=== PATIENT | female | born 1975 | race Caucasian/White ===

== ENCOUNTER 2021-02-20 12:43 | Emergency (ER) | payer BC, SELFPAY ==
[2021-02-20 12:45] VITALS: BP 136/86; PULSE 86; RESP 16; TEMP 36.8; O2SAT 98; BMI 25.9
--- NOTE | 2021-02-20 13:24 | HMH.EDUTC ---
[facility] [place] Clinical Impression: Dental abscess Disposition: Home, Self-Care Condition on Discharge: Good Instructions: Tooth Abscess, Amoxicillin and Clavulanic Acid Additional Instructions: Take medication as prescribed Follow up with your Family Doctor if needed Make sure to follow up with Dentist for further evaluation and treatment of broken teeth Straight to ER if any life threatening symptoms Prescriptions: Amoxicillin/Potassium Clav [Augmentin 875-125 Tablet] 1 tab PO Q12H 10 Days #20 tab Transmission Status: Pending to [id number] Referrals: Carlos Laguna [Primary Care Provider] - As needed Nithin Brizuela [Referring] - Time of Disposition: 13:57 Medical Decision Making - Jayjay Inquiry Pt receiving controlled substance: No Jayjay was queried for this patient: No Vital Signs: 02/20/21 12:45 Temperature 98.3 F Temperature Source Oral Pulse Rate [Right Brachial] 86 Respiratory Rate 16 Blood Pressure [Right Arm] 136/86 Blood Pressure Mean [Right Arm] 102 Blood Pressure Source [Right Arm] Automatic Cuff Blood Pressure Position [Right Arm] Sitting 02 Sat by Pulse Oximetry 98 Oxygen Delivery Method Room Air [facility] [place] H[place] - General Stated complaint: tooth ache Lt upper Time Seen by Provider: 02/20/21 13:24 Mode of Arrival: Ambulatory Source of Information: Patient Limitations: No Limitations Description of Symptoms (Recalled from Triage Doc. by RN): PATIENT C/O TOOTH ACHE SINCE FRIDAY NIGHT HEENT Symptoms (Recalled from RN notes): Yes Resp Symptoms (Recalled from RN notes): No Skin Symptoms (Recalled from RN notes): No MS Symptoms (Recalled from RN notes): No Functional Status (Recalled from RN notes): WNL - History of Present Illness Provider Complaint: Patient states that she has several broken and decaying teeth in her upper teeth two being the the main front teeth States that she spoke with her dentist and they recommended that she come in and get on some antibiotics due to she started having dental pain on Friday and now having some swelling of her upper lip area and thinks she has an infection - Related Data Previous Rx's Medication Instructions Recorded Amoxicillin/Potassium Clav 1 tab PO Q12H 10 Days #20 tab 02/20/21 [Augmentin 875-125 Tablet] Allergies Allergy/AdvReac Type Severity Reaction Status Date / Time No Known Allergies Allergy Verified 02/20/21 13:18 - Worker's Comp Is this a Worker's Comp case?: No [facility] History - Hepatitis A Screen Drug use history?: No High risk sexual behaviors?: No History of sexually transmitted infection?: No Currently employed?: No Childcare worker?: No Do you have indoor plumbing?: Yes Do you have electricity?: Yes Attestation statement:: This patient has been screened for Hepatitis A risk factors. I have reviewed the patient's past medical history: Yes - Social History Alcohol Intake: never Occupational Status: other ROS Obtained: Yes All systems reviewed & no additional complaints, Yes Systems reviewed as appropriate & no additional complaints - Constitutional Constitutional: Reports system reviewed and no additional complaints, except as docu - ENT Ears, Nose, Mouth, and Throat: Reports system reviewed and no additional complaints, except as docu, Reports dental pain - Cardiovascular Cardiovascular: Reports system reviewed and no additional complaints, except as docu Physical Exam - General General appearance: alert, in no apparent distress - Expanded ENT Exam Teeth exam: Present: dental caries, other (multiple broken and decaying teeth noted with redness and swelling to upper gumline and lip like that seen with dental abscess) - Respiratory Respiratory exam: Present: normal lung sounds bilaterally. Absent: respiratory distress - Cardiovascular Cardiovascular exam: Present: regular rate, normal rhythm. Absent: JVD - Neurological Exam Neurological exam: Present: alert, oriented X3
[2021-02-20 13:59] VITALS: BP 136/86; PULSE 86; RESP 16; TEMP 36.8; O2SAT 98
== END 2021-02-20 14:01 | disposition home or self-care (01) ==
PROVIDERS: Emergency Provider Nurse Practitioner; PCP Family Medicine
DX: K04.7 Periapical abscess without sinus (principal)
CPT/HCPCS: 99202; G0463

== ENCOUNTER 2021-05-07 09:20 | Outpatient (CLI) | payer BC, SELFPAY ==
[2021-05-07] VITALS (7 sets, daily range): BP systolic 105–118; BP diastolic 76–88; PULSE 83–100; RESP 15–20; TEMP 37.2–37.3; O2SAT 91–100
== END 2021-05-07 11:28 | disposition home or self-care (01) ==
LOC: INF 09:23
PROVIDERS: PCP Family Medicine; Visit Provider Emergency Medicine
DX: U07.1 COVID-19 (principal)
CPT/HCPCS: 96365

== ENCOUNTER 2022-10-22 08:15 | Emergency (ER) | payer BC, SELFPAY ==
[2022-10-22 08:20] VITALS: BP 152/94; PULSE 93; RESP 20; TEMP 37.1; O2SAT 96; BMI 26.1
--- NOTE | 2022-10-22 08:31 | EXP.UTC ---
Discharge Plan Disposition Patient Disposition: Home, Self-Care Condition: Good Prescriptions Prescriptions: New azithromycin [Zithromax] 250 mg tablet 250 mg PO UD DOSE PK Qty: 6 0RF Rx Instructions: Take two (2) tablets today, then one (1) tablet days #2 thru #5 benzonatate [benzonatate] 100 mg capsule 100 mg PO TIDP PRN (Reason: Cough) Qty: 30 0RF methylprednisolone 4 mg Tablets,Dose Pack 4 mg PO DIRECTED Qty: 21 0RF Referrals Follow up/Referrals: Carlos Laguna [Primary Care Provider] - See instructions Activity Restrictions/Add. Instructions Additional Instructions/Restrictions: Drink plenty of fluids. Take tylenol or ibuprofen for pain or fever. Take the medications as directed. Follow up with your regular doctor. GO TO THE ER FOR ANY WORSENING SYMPTOMS Clinical Impressions Clinical Impression: Sinusitis Stand Alone Forms Stand Alone Forms: Work/School Release Instructions Patient Instructions: Sinusitis, DI for Sinusitis Discharge ED Provider: Osman Espino [facility] General Stated complaint: Chest congestion SOA Cough Time Seen by Provider: 10/22/22 08:30 History of Present Illness Provider Complaint: She states that for the past 3 days she has had worsening sinus congestion and sore throat. Related Data Previous Rx's Medication Instructions Recorded azithromycin 250 mg tablet 250 mg PO UD DOSE PK #6 tabs 10/22/22 (Zithromax) benzonatate 100 mg capsule 100 mg PO TIDP PRN Cough #30 caps 10/22/22 methylprednisolone 4 mg tablets in 4 mg PO DIRECTED #21 tabs 10/22/22 a dose pack Allergies Allergy/AdvReac Type Severity Reaction Status Date / Time No Known Allergies Allergy Verified 10/22/22 08:32 [facility] Disclaimer: The information contained in this section may have been updated after the patient was seen, as this information can be updated by other users. Social History Smoking Status: Current every day smoker alcohol intake: never current occupational status: other Travel in the last 8 weeks: None ROS Obtained: Yes All systems reviewed & no additional complaints except as documented Constitutional Constitutional: Reports poor appetite Eyes Eyes: Reports system reviewed and no additional complaints, except as documented ENT Ears, Nose, Mouth, and Throat: Reports as per HPI Cardiovascular Cardiovascular: Reports system reviewed and no additional complaints, except as documented and Denies chest pain Respiratory Respiratory: Denies shortness of breath, Denies chest congestion, Reports cough, Denies stridor and Denies wheezing Gastrointestinal Gastrointestingal: Reports system reviewed and no additional complaints, except as documented; Denies abdominal pain, diarrhea or vomiting Musculoskeletal Musculoskeletal: Reports system reviewed and no additional complaints, except as documented and Denies arthralgias Integumentary/Breasts Skin/Breast: Reports system reviewed and no additional complaints, except as documented and Denies rash Neurologic Neurologic: Denies paresthesias Allergic/Immunologic Allergic/Immunologic: Denies wheezing Physical Exam General General appearance: alert and in no apparent distress Eye Eye exam: Present normal appearance, PERRL and EOMI ENT ENT exam: Present mucous membranes moist and normal external ear exam Expanded ENT Exam External ear exam: Present normal external inspection TM/Canal exam: Bilateral TM: erythema and bulging Nose exam: Absent sinus tenderness Nasal speculum exam: Bilateral: normal Mouth exam: Present normal external inspection; Absent drooling Teeth exam: Present normal inspection Throat exam: Present tonsillar erythema and tonsillomegaly Neck Neck exam: Present normal inspection, full ROM and trachea midline; Absent tenderness, lymphadenopathy or thyromegaly Chest Chest inspection: Present normal inspection and symmetric chest w
[2022-10-22 09:15] VITALS: BP 152/94; PULSE 93; RESP 20; TEMP 37.1; O2SAT 96
== END 2022-10-22 09:15 | disposition home or self-care (01) ==
PROVIDERS: Emergency Provider Nurse Practitioner Family; PCP Family Medicine
DX: J32.9 Chronic sinusitis, unspecified (principal)
CPT/HCPCS: 99212; 99213; G0463

== ENCOUNTER 2025-03-22 20:44 | Emergency (ER) | payer SELFPAY ==
--- NOTE | 2025-03-22 20:39 | ECG_ITS ---
APPROVED REPORT Exam: Resting ECG HR:81 bpm ECG Measurements Heart Rate 81 AXES MD 177 P 55 QRSd 83 QRS 83 QT 379 T 75 QTc 417 Conclusion Normal sinus rhythm without acute ST or T wave changes concerning for ischemia, T wave inversions in V1 V2 V3 V4, no comparison Electronically signed by : Adriane Dorman, 03/23/2025 00:34:08
[2025-03-22 20:41] VITALS: BP 157/106; PULSE 78; RESP 18; TEMP 36.9; O2SAT 98; BMI 24.7
--- NOTE | 2025-03-22 20:45 | HMH.EDGENADL ---
Discharge Plan Disposition Patient Disposition: Home, Self-Care Condition: Good Prescriptions Prescriptions: No Action azithromycin [Zithromax] 250 mg tablet 250 mg PO UD DOSE PK Qty: 6 0RF Rx Instructions: Take two (2) tablets today, then one (1) tablet days #2 thru #5 benzonatate [benzonatate] 100 mg capsule 100 mg PO TIDP PRN (Reason: Cough) Qty: 30 0RF methylprednisolone 4 mg Tablets,Dose Pack 4 mg PO DIRECTED Qty: 21 0RF Referrals Follow up/Referrals: Carlos Laguna [Primary Care Provider, Medical] - See instructions Danyel Potter MD [Staff Physician, Cardiology] - See instructions Activity Restrictions/Add. Instructions Additional Instructions/Restrictions: I have referred you to cardiology. Please call to make your appointment in the morning. If you have any persistent new or worsening signs or symptoms follow-up with your PCP return to the ER as needed. Clinical Impressions Clinical Impression: Chest pain Qualifiers: Chest pain type: unspecified Qualified Code(s): R07.9 - Chest pain, unspecified Print Language Print Language: Pashto Discharge ED Provider: Jamison Desai General Adult HPI <MILAD Oakley - Last Filed: 03/22/25 21:31> General Chief complaint: Chest Pain Stated complaint: chest pain Time Seen by Provider: 03/22/25 20:45 History of Present Illness HPI narrative: Patient presents for evaluation of chest pain. Patient states that she has had intermittent chest pain today that began around 8:39 this morning. She did not have any provoking factors that happen at rest. It is lasted approximately 30 minutes at a time. She denies any shortness of breath fever chills hemoptysis hematochezia melena nausea vomiting diarrhea or muscle strain or trauma. She does not have a known cardiac history is on no home medications. Related Data Previous Rx's ?Medication ?Instructions ?Recorded azithromycin 250 mg tablet 250 mg PO UD DOSE PK #6 tabs 10/22/22 (Zithromax) benzonatate 100 mg capsule 100 mg PO TIDP PRN Cough #30 caps 10/22/22 methylprednisolone 4 mg tablets in 4 mg PO DIRECTED #21 tabs 10/22/22 a dose pack Allergies Allergy/AdvReac Type Severity Reaction Status Date / Time No Known Allergies Allergy Verified 10/22/22 08:32 [facility] <MILAD Oakley - Last Filed: 03/22/25 21:31> [facility] Disclaimer: The information contained in this section may have been updated after the patient was seen, as this information can be updated by other users. Social History (Updated 10/22/22 @ 09:11 by Osman Espino APRN) Smoking Status: Never smoker alcohol intake: never current occupational status: other Travel in the last 8 weeks?: None Have you lived/traveled outside [place] in past 30 days?: No Contact w/someone who lives/traveled outside US past 30 days?: No Exposure to someone with infectious disease in past 14 days?: No Do you have a fever (greater than 100.4 F or 38 C)?: No Have you tested positive for COVID-19?: No Exposed to someone with COVID-19 in past 14 days?: No Do you have a sore throat?: No Do you have a cough?: No Do you have any weakness?: No Do you have any diarrhea?: No Are you experiencing any unusual bleeding?: No Do you have any muscle aches/pain?: No Do you have any abdominal pain?: No Are you experiencing loss of taste or smell?: No <MILAD Oakley - Last Filed: 03/22/25 21:31> ROS Obtained: Yes Systems reviewed as appropriate & no additional complaints except as documented Physical Exam <MILAD Oakley - Last Filed: 03/22/25 21:31> General General appearance: alert and in no apparent distress Respiratory Respiratory exam: Present normal lung sounds bilaterally Cardiovascular Cardiovascular exam: Present regular rate Neurological Exam Neurological exam: Present alert and oriented X3 Medical Decision Making <MILAD Oakley - Last Filed: 03/22/25 21:31> Medical Records Medical records reviewed: Yes I reviewed the patient's medical records. Screening: Per USPSTF and CDC recommendations, given the prevalence of disease in our region, it is our hospital?s policy to screen for HIV and viral Hepatitis for all patients aged 18 and over and those with ongoing risk factors. Jayjay Inquiry Pt receiving controlled substance: No Vital Signs: 03/22/25 20:41 03/22/25 22:00 03/22/25 22:30 Temperature 98.4 F Temperature Source Oral Pulse Rate 66 62 Pulse Rate [Right] 78 Respiratory Rate 18 Blood Pressure 133/83 153/83 H Blood Pressure [Right Arm] 157/106 H Blood Pressure Mean [Right Arm] 123 Blood Pressure Source [Right Arm] Automatic Cuff Blood Pressure Position [Right Arm] Sitting 02 Sat by Pulse Oximetry 98 97 98 Oxygen Delivery Method Room Air 03/22/25 23:01 Temperature Temperature Source Pulse Rate 74 Pulse Rate [Right] Respiratory Rate Blood Pressure 124/83 Blood Pressure [Right Arm] Blood Pressure Mean [Right Arm] Blood Pressure Source [Right Arm] Blood Pressure Position [Right Arm] 02 Sat by Pulse Oximetry 97 Oxygen Delivery Method Lab Data Lab results reviewed: Yes I reviewed the patient's lab results. Lab Results 03/22/25 20:47: WBC 6.8, RBC 4.60, Hgb 13.4, Hct 40.9, MCV 88.9, MCH 29.1, MCHC 32.8, RDW 12.3, Plt Count 273, MPV 10.2, Neut % (Auto) 51.1, Lymph % (Auto) 28.3, Norton % (Auto) 7.9, Eos % (Auto) 11.3, Baso % (Auto) 1.3, Neut # (Auto) 3.5, Lymph # (Auto) 1.9, Norton # (Auto) 0.5, Eos # (Auto) 0.8 H, Baso # (Auto) 0.1, D-Dimer 0.58 H, Sodium 143, Potassium 3.4 L, Chloride 111 H, Carbon Dioxide 25, Anion Gap 10.4, BUN 17, Creatinine 0.90, Estimated Creat Clear 77, Estimated GFR 67, Est GFR ( Amer) 81, Glucose 112 H, Calcium 9.7, Total Bilirubin 0.6, AST 23, ALT 14, Alkaline Phosphatase 118, Troponin I < 0.01, NT-Pro-B Natriuret Pep 45.4, Total Protein 7.2, Albumin 4.4, Globulin 2.8, Albumin/Globulin Ratio 1.6, Serum HCG, Qual Negative 03/22/25 23:27: Troponin I < 0.01 03/22/25 20:47 03/22/25 20:47 Orders (Tests/Meds): ED MEDICATIONS Discontinued Medications Generic Name Dose Route Start Last Admin Trade Name Freq PRN Reason Stop Dose Admin Acetaminophen 1,000 mg 03/22/25 20:50 03/22/25 21:10 Acetaminophen 500mg Tab PO 03/22/25 20:51 1,000 mg ONCE ONE Administration Sodium Chloride 1,000 mls @ 999 mls/hr 03/22/25 20:50 03/22/25 21:10 Sod Chlor 0.9% 1000ml Bag IV 03/22/25 21:50 999 mls/hr .Q1H1M ONE Administration Ketorolac Tromethamine 15 mg 03/22/25 20:50 03/22/25 21:10 Ketorolac 30mg/Ml Vial IV 03/22/25 20:51 15 mg ONCE ONE Administration Ondansetron HCl 4 mg 03/22/25 20:50 03/22/25 21:09 Ondansetron 4mg/2ml Vial IV 03/22/25 20:51 4 mg ONCE ONE Administration Potassium Chloride 60 meq 03/22/25 21:14 03/22/25 21:21 Potassium Chloride 20meq Tab PO 03/22/25 21:15 60 meq ONCE ONE Administration ORDERS Category Date Time Status Chest XR 2 view (NOT portable) [XR chest 2V] Stat Exams 03/22/25 20:50 Completed BNP [NT Pro Brain Natriuretic Pep.] Stat Lab 03/22/25 20:47 Completed CBC w/Auto Diff [Complete Blood Count Auto Diff] Stat Lab 03/22/25 20:47 Completed CMP [Comprehensive Metabolic Panel] Stat Lab 03/22/25 20:47 Completed D-Dimer Stat Lab 03/22/25 20:47 Completed HCG Qualitative, Serum Stat Lab 03/22/25 20:47 Completed Trop I [Troponin I] Stat Lab 03/22/25 20:47 Completed Troponin I Q3H Lab 03/22/25 23:27 Completed Troponin I Q3H Lab 03/23/25 02:51 Ordered Medical Decision Narrative: In summary patient is a 49-year-old female who presents to the emergency department for evaluation of intermittent chest pain. Patient is initially hypertensive with a blood pressure 157/106 heart rate 78 with sinus rhythm on the bedside monitor breathing 18 times a minute satting at 98% on room air upon arrival, afebrile at 98.4. Physical exam is remarkable for clear breath sounds with no increased work of breathing adventitious sounds, there is no reproducible chest pain on palpation, abdomen soft nontender no rebound or guarding no rigidity. Bowel sounds normal active.. Differential diagnosis includes ACS versus PE versus pneumonia versus musculoskeletal strain etc. Initial workup will be conducted with hematologic labs twelve-lead EKG plain film chest x-ray. Initial interventions include Tylenol Toradol Zofran. Initial workup interpreted by me and her hematologic labs are nonactionable including an undetectable troponin. Patient had a D-dimer of 0.58 but thrombus is excluded by years criteria. Given this the patient was placed in observation status at 2130. Medical necessity for observational status is serial troponins. The patient was provided serial reevaluations continuous cardiac monitoring pulse oximetry while awaiting results. Care transitioned to Dr. Dorman at 2200 hrs. during observation. Total time in observation was [total time]. <Adriane Dorman, DO - Last Filed: 03/23/25 00:29> Vital Signs: 03/22/25 20:41 03/22/25 22:00 03/22/25 22:30 Temperature 98.4 F Temperature Source Oral Pulse Rate 66 62 Pulse Rate [Right] 78 Respiratory Rate 18 Blood Pressure 133/83 153/83 H Blood Pressure [Right Arm] 157/106 H Blood Pressure Mean [Right Arm] 123 Blood Pressure Source [Right Arm] Automatic Cuff Blood Pressure Position [Right Arm] Sitting 02 Sat by Pulse Oximetry 98 97 98 Oxygen Delivery Method Room Air 03/22/25 23:01 Temperature Temperature Source Pulse Rate 74 Pulse Rate [Right] Respiratory Rate Blood Pressure 124/83 Blood Pressure [Right Arm] Blood Pressure Mean [Right Arm] Blood Pressure Source [Right Arm] Blood Pressure Position [Right Arm] 02 Sat by Pulse Oximetry 97 Oxygen Delivery Method Lab Data Lab Results 03/22/25 20:47: WBC 6.8, RBC 4.60, Hgb 13.4, Hct 40.9, MCV 88.9, MCH 29.1, MCHC 32.8, RDW 12.3, Plt Count 273, MPV 10.2, Neut % (Auto) 51.1, Lymph % (Auto) 28.3, Norton % (Auto) 7.9, Eos % (Auto) 11.3, Baso % (Auto) 1.3, Neut # (Auto) 3.5, Lymph # (Auto) 1.9, Norton # (Auto) 0.5, Eos # (Auto) 0.8 H, Baso # (Auto) 0.1, D-Dimer 0.58 H, Sodium 143, Potassium 3.4 L, Chloride 111 H, Carbon Dioxide 25, Anion Gap 10.4, BUN 17, Creatinine 0.90, Estimated Creat Clear 77, Estimated GFR 67, Est GFR ( Amer) 81, Glucose 112 H, Calcium 9.7, Total Bilirubin 0.6, AST 23, ALT 14, Alkaline Phosphatase 118, Troponin I < 0.01, NT-Pro-B Natriuret Pep 45.4, Total Protein 7.2, Albumin 4.4, Globulin 2.8, Albumin/Globulin Ratio 1.6, Serum HCG, Qual Negative 03/22/25 23:27: Troponin I < 0.01 Orders (Tests/Meds): ED MEDICATIONS Discontinued Medications Generic Name Dose Route Start Last Admin Trade Name Freq PRN Reason Stop Dose Admin Acetaminophen 1,000 mg 03/22/25 20:50 03/22/25 21:10 Acetaminophen 500mg Tab PO 03/22/25 20:51 1,000 mg ONCE ONE Administration Sodium Chloride 1,000 mls @ 999 mls/hr 03/22/25 20:50 03/22/25 21:10 Sod Chlor 0.9% 1000ml Bag IV 03/22/25 21:50 999 mls/hr .Q1H1M ONE Administration Ketorolac Tromethamine 15 mg 03/22/25 20:50 03/22/25 21:10 Ketorolac 30mg/Ml Vial IV 03/22/25 20:51 15 mg ONCE ONE Administration Ondansetron HCl 4 mg 03/22/25 20:50 03/22/25 21:09 Ondansetron 4mg/2ml Vial IV 03/22/25 20:51 4 mg ONCE ONE Administration Potassium Chloride 60 meq 03/22/25 21:14 03/22/25 21:21 Potassium Chloride 20meq Tab PO 03/22/25 21:15 60 meq ONCE ONE Administration ORDERS Category Date Time Status Chest XR 2 view (NOT portable) [XR chest 2V] Stat Exams 03/22/25 20:50 Completed BNP [NT Pro Brain Natriuretic Pep.] Stat Lab 03/22/25 20:47 Completed CBC w/Auto Diff [Complete Blood Count Auto Diff] Stat Lab 03/22/25 20:47 Completed CMP [Comprehensive Metabolic Panel] Stat Lab 03/22/25 20:47 Completed D-Dimer Stat Lab 03/22/25 20:47 Completed HCG Qualitative, Serum Stat Lab 03/22/25 20:47 Completed Trop I [Troponin I] Stat Lab 03/22/25 20:47 Completed Troponin I Q3H Lab 03/22/25 23:27 Completed Troponin I Q3H Lab 03/23/25 02:51 Ordered Medical Decision Narrative: In summary patient is a 49-year-old female who presents to the emergency department for evaluation of intermittent chest pain. Patient is initially hypertensive with a blood pressure 157/106 heart rate 78 with sinus rhythm on the bedside monitor breathing 18 times a minute satting at 98% on room air upon arrival, afebrile at 98.4. Physical exam is remarkable for clear breath sounds with no increased work of breathing adventitious sounds, there is no reproducible chest pain on palpation, abdomen soft nontender no rebound or guarding no rigidity. Bowel sounds normal active.. Differential diagnosis includes ACS versus PE versus pneumonia versus musculoskeletal strain etc. Initial workup will be conducted with hematologic labs twelve-lead EKG plain film chest x-ray. Initial interventions include Tylenol Toradol Zofran. Initial workup interpreted by me and her hematologic labs are nonactionable including an undetectable troponin. Patient had a D-dimer of 0.58 but thrombus is excluded by years criteria. Given this the patient was placed in observation status at 2130. Medical necessity for observational status is serial troponins. The patient was provided serial reevaluations continuous cardiac monitoring pulse oximetry while awaiting results. Care transitioned to Dr. Dorman at 2200 hrs. during observation. Adriane Dorman, DO I took over the care of this patient at 2200, patient was in observation for 2.5 hours. While in observation status, patient's pain was resolved, patient's pain did not return. Patient's repeat troponin was less than 0.01. Patient's heart score was 3. Patient's EKG did have some nonspecific T wave inversions in the anterior leads, patient reports previous cardiac workup 5 years ago with cath was negative for any acute coronary artery disease. At this time given that patient's troponin's x2 were less than 0.01 and that patient's pain was resolved I felt the patient was appropriate for outpatient management with cardiology follow-up. This time, patient was discharged home in stable condition. Cardiology follow-up was given at discharge. Critical Care <MILAD Oakley - Last Filed: 03/22/25 21:31> Critical Care Time Critical Care Time: No
--- OUTSIDE RECORDS SUMMARY | 2025-03-22 20:47 | XMS_ITS | Data Portability ---
Author Organization [facility] MOI Aragon AMES CLOSED Address [address] [place] [address] Care Team Providers Care Art Coordinator Name Role Phone MENDEZ MOODY Primary Care Provider Assessment Encounter Date Assessment Date Assessment LastModified by Organization Details LastModified Time 05/08/2017 05/08/2017 No evidence of ongoing UTI. Stones still present. We will proceed with cystoscopy, left ureteroscopy, laser lithotripsy, stent placement. The risks and benefits of the procedure were discussed patient. [email or web address] Not available 05/08/2017 16:05:10 04/15/2023 04/15/2023 We discussed the diagnosis of urolithiasis. We discussed tensional prevention with raising of urinary pH. She is initiated on potassium citrate. She understands that uric acid stones may not show on KUB unless there is some calcium component. Recheck X-ray and urine in 2 months [email or web address] Not available 04/20/2023 16:15:57 Plan of Treatment Reminders Order Date Submit Date Provider Last Modified By Organization Details Last Modified Time Details Appointments None recorded. Lab urinalysis panel, auto 2022 023 [email or web address] [facility], [address], [place], [address], 16:16:07 urinalysis , dipstick, auto 2016 017 [email or web address] [facility] [address], [place], [address], 7 16:03:49 Referral None recorded. Procedures None recorded. Surgeries cystoscopy , with ureterosco py, with lithotrips y, with insertion of ureteral stent (SURG) 2016 017 [email or web address] [facility], [address], [place], [address], 7 08:05:54 Imaging None recorded. Medication Orders potassium citrate ER 15 mEq (1,620 mg) tablet,ext ended release 2022 023 [facility], [address] [facility], [place], [address], 3 16:16:53 Patient TargetsNo targets recorded. Patient Instructions Encounter Date Encounter Id Patient Instructions Last Modified By Organization Details Last Modified Time 05/08/2017 [id number] healthy together ASIF Not availabl e 05/10/2017 21:46:16 kidney stone: care instructions ASIF Not available 05/10/2017 21:46:54 Reason for Referral None Reported. Results Created Date Observation Date Name Description Value Unit Range Abnormal Flag Note LastModifiedBy Organization Detail LastModifiedTime 05/08/20 17 05/08/2017 urina lysis , dipst ick, auto Unknown Analyte Yellow Not Available [facility] Extended Services With [address], [place], [address], 05/08/2017 15:34:00 05/08/20 17 05/08/2017 urina lysis , dipst ick, auto Unknown Analyte Clear Not Available [facility] With [address], [place], [address], 05/08/2017 15:34:00 05/08/20 17 05/08/2017 urina lysis , dipst ick, auto Unknown Analyte 1.020 Not Available [facility] With [address], [place], [address], 05/08/2017 15:34:00 05/08/20 17 05/08/2017 urina lysis , dipst ick, auto Unknown Analyte 5.0 Not Available [facility] With [address] [place], [place], [address], 05/08/2017 15:34:00 05/08/20 17 05/08/2017 urina lysis , dipst ick, auto Unknown Analyte Negati ve Not Available [facility] Extended Services With [address] [place], [place], [address], 05/08/2017 15:34:00 05/08/20 17 05/08/2017 urina lysis , dipst ick, auto Unknown Analyte Negati ve Not Available [facility] With [address], [place], [address], 05/08/2017 15:34:00 05/08/20 17 05/08/2017 urina lysis , dipst ick, auto Unknown Analyte Negtiv e Not Available [facility] With [address], [place], [address], 05/08/2017 15:34:00 05/08/20 17 05/08/2017 urina lysis , dipst ick, auto Unknown Analyte Normal Not Available [facility] With [address] [place], [address], 05/08/2017 15:34:00 05/08/20 17 05/08/2017 urina lysis , dipst ick, auto Unknown Analyte Negati ve Not Available [facility] With [address] [place], [address], 05/08/2017 15:34:00 05/08/20 17 05/08/2017 urina lysis , dipst ick, auto Unknown Analyte Normal Not Available [facility] With [address], [place], [address], 05/08/2017 15:34:00 05/08/20 17 05/08/2017 urina lysis , dipst ick, auto Unknown Analyte Negati ve Not Available [facility] With [address], [place], [address], 05/08/2017 15:34:00 05/08/20 17 05/08/2017 urina lysis , dipst ick, auto Unknown Analyte Negati ve Not Available [facility] With [address] [place] [place], [address], 05/08/2017 15:34:00 05/08/20 17 05/08/2017 urina lysis , dipst ick, auto Unknown Analyte Clean Catch Not Available [facility] With [address], [place], [address], 05/08/2017 15:34:00 05/08/20 17 05/08/2017 urina lysis , dipst ick, auto Unknown Analyte Automa ziyad Not Available [facility] With [address] [place] [place], [address], 05/08/2017 15:34:00 04/15/20 23 04/15/2023 urina lysis panel , auto Unknown Analyte Clean Catch Not Available [facility] [address], [place], [address], 04/15/2023 09:44:06 04/15/2004/15/2023 urina lysis panel , auto Unknown Analyte Yellow Not Available [facility] [place] [address], [place], [address], 04/15/2023 09:44:06 04/15/20 23 04/15/2023 urina lysis panel , auto Unknown Analyte Clear Not Available [facility] [address], [place], [address], 04/15/2023 09:44:06 04/15/20 23 04/15/2023 urina lysis panel , auto Unknown Analyte 1.015 Not Available [facility] [address], [place], [address], 04/15/2023 09:44:06 04/15/20 23 04/15/2023 urina lysis panel , auto Unknown Analyte 1.003- 1.035 Not Available [facility] [address], [place], [address], 04/15/2023 09:44:06 04/15/20 23 04/15/2023 urina lysis panel , auto Unknown Analyte 5.0 Not Available [facility] [address], [place], [address], 04/15/2023 09:44:06 04/15/20 23 04/15/2023 urina lysis panel , auto Unknown Analyte 5.0-8. 0 Not Available [facility] [address], [place], [address], 04/15/2023 09:44:06 04/15/20 23 04/15/2023 urina lysis panel , auto Unknown Analyte [address] [place] (++) Not Available [facility] [place] [address], [place], [address], 04/15/2023 09:44:06 04/15/20 23 04/15/2023 urina lysis panel , auto Unknown Analyte Negati ve Not Available [facility] [address], [place], [address], 04/15/2023 09:44:06 04/15/20 23 04/15/2023 urina lysis panel , auto Unknown Analyte Negati ve Not Available [facility] [address], [place], [address], 04/15/2023 09:44:06 04/15/20 23 04/15/2023 urina lysis panel , auto Unknown Analyte Negati ve Not Available [facility] [address], [place], [address], 04/15/2023 09:44:06 04/15/20 23 04/15/2023 urina lysis panel , auto Unknown Analyte Trace Not Available [facility] [address], [place], [address], 04/15/2023 09:44:06 04/15/20 23 04/15/2023 urina lysis panel , auto Unknown Analyte Negati ve Not Available [facility] [address], [place], [address], 04/15/2023 09:44:06 04/15/20 23 04/15/2023 urina lysis panel , auto Unknown Analyte Normal Not Available [facility] [address], [place], [address], 04/15/2023 09:44:06 04/15/20 23 04/15/2023 urina lysis panel , auto Unknown Analyte Normal Not Available [facility] [address], [place], [address], 04/15/2023 09:44:06 04/15/2004/15/2023 urina lysis panel , auto Unknown Analyte Negati ve Not Available [facility] [address], [place], [address], 04/15/2023 09:44:06 04/15/2004/15/2023 urina lysis panel , auto Unknown Analyte Negati ve Not Available [facility] [address], [place], [address], 04/15/2023 09:44:06 04/15/20 23 04/15/2023 urina lysis panel , auto Unknown Analyte Normal Not Available [facility] [address], [place], [address], 04/15/2023 09:44:06 04/15/2004/15/2023 urina lysis panel , auto Unknown Analyte Normal 1 mg/dl Not Available [facility] [address], [place], [address], 04/15/2023 09:44:06 04/15/2004/15/2023 urina lysis panel , auto Unknown Analyte Negati ve Not Available [facility] [address], [place], [address], 04/15/2023 09:44:06 04/15/20 23 04/15/2023 urina lysis panel , auto Unknown Analyte Negati ve Not Available [facility] [address], [place], [address], 04/15/2023 09:44:06 04/15/20 23 04/15/2023 urina lysis panel , auto Unknown Analyte Trace Not Available [facility] [address], [place], [address], 04/15/2023 09:44:06 04/15/20 23 04/15/2023 urina lysis panel , auto Unknown Analyte Negati ve Not Available [facility] [address], [place], [address], 04/15/2023 09:44:06 05/14/20 17 05/14/2017 fluor oscop y (PROC ) No observ ation record ed. [email or web address] [facility] [address], [place], [address], 05/15/2017 09:34:04 05/20/20 17 05/01/2017 CT, abdom en + pelvi s, w/o contr ast No observ ation record ed. [facility] [address], [place], [address], 05/20/2017 16:36:02 05/20/20 17 05/03/2017 XR, kidne y + urete r + bladd er No observ ation record ed. [facility] [address], [place], [address], 05/20/2017 16:36:02 Result Notes None recorded. Procedures Surgical History Date Name Laterality Status Provider Name and Address Organization Details Recorded Time Hysterectomy completed [facility] 05/08/2017 15:31:09 Imaging Results None recorded. Procedure Notes None recorded. Medical Equipment None Reported. Allergies No known drug allergies Medications Name Sig Start Date Stop Date Status Note LastModified by Organization Details LastModified Time potassium citrate ER 15 mEq (1,620 mg) tablet,exte nded release Take 1 tablet twice a day by oral route for 90 days. 023 active Not Available Not Available Not Avai lable Vitals Date Recorded Body height Body mass index (BMI) Body weight Systolic And Diastolic Provider Name and Address Organization Details Last Updated DateTime 05/08/2017 162.56 cm 23.2 kg/m2 58836.97 g 130/81 mm[Hg] [facility] 05/08/2017 15:28:14 Social History Question Answer Notes LastModified by Organizat ion Details LastModified Time Tobacco Smoking Status Never Smoker [facility] 05/08/2017 15:30:53 Marital Status Informatio n not available 05/08/2017 What Was The Date Of Your Most Recent Tobacco Screening? 05/08/2017 Information n ot available 10/19/2019 Sex: Unknown Functional Status Question Answer Note LastModified by Organization D etails LastModified Time What is your level of alcohol consumption? None Information not available 05/08/2017 Mental Status None recorded. Family History Relationship Description Onset Age of this Age Resolved Age Notes LastModified by Organization Details LastModified Time Unspecified Relation Family history of malignant neoplasm merary Not available 2016 15:30:46 Medical History Condition Response Kidney Stones Y Anemia Y Gynecological HistoryNo gynecological history recorded. Obstetrics History GPAL:G 0 P 0 0 0 0 Past Encounters Encounter ID Performer Location Encounter Start Date Encounter Closed Date Diagnosis/Indication Diagnosis SNOMED-CT Code Diagnosis ICD10 Code Diagnosis Note [id number] REINIER CHIN MD [facility] [address] [place] [address] ,[address] [place] [address] 05/08/2017 15:26:30 05/09/2017 15:54:31 Ureteric stone 86880688 N20.1 [id number] REINIER CHIN MD [facility] [address] [place] [address] 04/15/2023 09:08:20 04/15/2023 10:08:04 Ureteric stone 92229539 N20.1 Uric acid urolithiasis 760573188 N20.9 Health Concerns Section Related Observation LastModified by Organization Detai ls LastModified Time None Recorded Concern Status LastModified by Organization Details LastModified Time None Recorded Advance Directives Directive None Recorded Payers Insurance Date Sequence Insurance Name Policy Number Policy Fraire Covered Member ID Fraire Member ID Guarantor Name 04/21/2023 1 [place] [id number] Simin A Jensen [id number] Simin Frandy Jensen 02/10/2023 1 [place] [id number] Vega Styles [id number] Simin Styles 05/09/2017 1 *SELF PAY* Griselda Styles Notes Date Note Type Note Provider Name and Address Organization Details Recorded Time 05/08/2017 text/html 42-year-old johnathan malin in the office for my initial evaluation and for discussion of left ureteral stones with recent sepsis of urinary origin. She began having pain on May 01, 2017. Pain persisted and she was evaluated and [facility] emergency department. CT scan was performed at that time that showed bilateral nephrolithiasis with 3 mm lower pole stone on the right, 2 mm lower pole stone on the left, 5 mm stone in distal left ureter with 2 smaller stones proximally measuring 4 mm and 3 mm. Pain has improved but she has not passed the stones. She was treated for Escherichia coli urinary tract infection And bacteremia with admission from May 01, 2017 2 May 03, 2017. Pain was left flank, nonradiating, 8 out of 10, no aggravating or alleviating factors. She was given Rocephin. KUB prior to discharge shows persistent stone. REINIER CHIN MD [address] [place], [address], [place] [facility] 05/08/2017 16:05:45 04/15/2023 text/html 48-year-old johnathan malin in the office for my initial evaluation and for discussion of urolithiasis. In January 2023 she was diagnosed with 2 mm right proximal renal stone and small non-obstructing renal stones. The ureteral stone was removed by Dr. Cast and she was diagnosed with uric acid urolithiasis. PCP has referred for evaluation and treatment of uric acid urolithiasis. Her urine pH today is 5. Daytime frequency 1-2 times per day. Nocturia 1x. No hesitancy or urgency. No gross hematuria or dysuria. REINIER CHIN MD [facility] [place], [address], [facility] 04/20/2023 16:16:48 OBGyn Episode No OBEpisode recorded.
--- OUTSIDE RECORDS SUMMARY | 2025-03-22 20:47 | XMS_ITS | Referral Summary ---
Author Organization [facility] ([place], [place], [place], [place]) Address [address] [place] [address] Care Team Providers Care Director Of [facility] Name Role Phone Carlos Laguna MD Primary Care Provider [phone] Allergies No known active allergies Medications HYDROcodone-marcel taminophen 7.5-300 mg Tab Take 1 tablet by mouth every 6 (six) hours as needed (pain). Max Daily Amount: 4 tablets 15 tablet 02/07/2023 Active Active Problems No known active problems Social History Tobacco Use Types Packs/Day Years Used Date Smoking Tobacco: Never Smokeless Tobacco: Never Tobacco Cessation:Counseling Given: Not Answered Alcohol Use Standard Drinks/Week Comments Never 0 (1 standard drink = 0.6 oz pur e alcohol) Food Insecurity Answer Date Recorded Food run out past 12 months Not on file 09/01 Food did not last past 12 months Not on file 09/19/2023 Employment Answer Date Recorded Help finding and keeping a job Not on file 0 09/19/2023 Family and Community Support Answer Todd e Recorded Help with Day to Day Activities Not on file 09/19/2023 Feeling Lonely or Isolated Not on file 09/19 Educational Attainment Answer Date Fahad rded Speak language other than Eritrean at home Not on file 09/19/2023 Want help with school or training Not on file 09/19/2023 Substance Use Answer Date Recorded Used prescription meds for non-medical reasons N ot on file 09/19/2023 Used illegal drugs past 12 months Not on file 09/19/2023 Comments No Sex and Gender Information Value Date Recorded Sex Assigned at Not on file Legal Sex Female 6:39 PM CDT Gender Identity Not on file Sexual Orientation Not on file Last Filed Vital Signs Vital Sign Reading Time Taken Comments Blood Pressure 124/72 02/07/2023 7:39 PM EDT Pulse 70 02/07/2023 6:45 PM EDT Temperature 36.9 C (98.4 F) 02/07/2023 4:28 PM EDT Respiratory Rate 18 02/07/2023 4:28 PM EDT Oxygen Saturation 100% 02/07/2023 6:45 PM EDT Inhaled Oxygen Concentration - - Weight 72.6 kg (160 lb) 02/07/2023 4:28 PM EDT Height 167.6 cm (5' 6 ) 02/07/2023 4:28 PM EDT Body Mass Index 25.82 02/07/2023 4:28 PM EDT Plan of Treatment Not on file Insurance Care Teams Director Of Research Center Relationship Specialty Start Date End Date Carlos Laguna MD [facility] [place] [address] PCP - General Family Medicine 02/07/23
--- OUTSIDE RECORDS SUMMARY | 2025-03-22 20:47 | XMS_ITS | Encounter Summary ---
Author Organization [employer] ([place], [place], [place], [place]) Address [address] [place] [address] Care Team Providers Care Electronic Die Maker Name Role Phone Carlos Laguna MD Primary Care Provider [phone] Encounter Details Date Type Department Care Team (Late st Contact Info) Description 04/07/2019 Transcribed Document [facility] [place] Family Medicine [facility] [place] [address] ProviderMiryam MD [address] [place] [address] Social History Tobacco Use Types Packs/Day Years Used Date Smoking Tobacco: Never Assessed Comments Unknown Sex and Gender Information Value Date Recorded Sex Assigned at Not on file Legal Sex Female 6:39 PM CDT Gender Identity Not on file Sexual Orientation Not on file documented as of this encounter Miscellaneous Notes * Cerner Conversion Note - Miryam Gastelum MD - 04/07/2019 2:05 PM CDT Patient: KYLIE VALE Age: 44 years Sex: Female : 1975 Associated Diagnoses: None Author: TERESA EDMONDSON MD-CAR Basic Information PCP: Carlos Laguna MD Cardiology: Brea Alanis Chief Complaint chest pain History of Present Illness 44 year old female with a history of hyperlipidemia and hypothyroidism. She was seen by Dr Alanis for evaluation of recurrent chest pain. She has had multiple ER visits regarding this, each time she has been ruled out for OK and discharged home. The pain is localized in the center of her chest and is described as a sudden pressure. The pain radiates into the left arm. Associated symptoms include dyspnea. The pain reaches an intensity level 10/10. There is no obvious trigger or relieving factors. The pain will last 3 to 5 minutes before suddenly stopping. She had an EKG done at Dr Alanis office that was abnormal showing T wave inversion in the anterior leads. Based on the patients EKG and recurrent symptoms she has been scheduled for elective cardiac cath. Review of Systems Constitutional: Negative except as documented in history of present illness. Eye: Negative except as documented in history of present illness. Ear/Nose/Mouth/Throat: Negative except as documented in history of present illness. Respiratory: Negative except as documented in history of present illness. Cardiovascular: Negative except as documented in history of present illness. Gastrointestinal: Negative except as documented in history of present illness. Genitourinary: Negative except as documented in history of present illness. Hematology/Lymphatics: Negative except as documented in history of present illness. Endocrine: Negative except as documented in history of present illness. Immunologic: Negative except as documented in history of present illness. Musculoskeletal: Negative except as documented in history of present illness. Integumentary: Negative except as documented in history of present illness. Neurologic: Negative except as documented in history of present illness. Psychiatric: Negative except as documented in history of present illness. Health Status Allergies (1) Active Reaction No Known Allergies None Documented No qualifying data available Allergies: Allergic Reactions (Selected) No Known Allergies Current medications: (Selected) Inpatient Medications Ordered Normal Saline Flush: 10 mL, IV Push, Q12H Normal Saline Flush: 10 mL, IV Push, See Comment, PRN: IV Use Sodium Chloride 0.9% intravenous solution 500 mL: Titrate, IntraVENous Completed atorvastatin: 80 mg, Oral, PREOP Documented Medications Documented Metoprolol Succinate ER 25 mg oral tablet, extended release: 1 Tab, Oral, Daily, 0 Refill(s) aspirin 325 mg oral tablet: 1 Tab, Oral, Daily, 0 Refill(s) atorvastatin 40 mg oral tablet: 1 Tab, Oral, Daily, 0 Refill(s) levothyroxine 50 mcg (0.05 mg) oral tablet: 1 Tab, Oral, Daily, 60 Tab, 0 Refill(s) Problem list: All Problems HTN - Hypertension / SNOMED CT 3291124609 / Confirmed Hypothyroidism / SNOMED CT 54413392 / Confirmed At risk for sleep apnea / IMO [id number] / Confirmed Inactive: Chest pain / SNOMED CT 41045780 none today - last had chest pain yesterday pt states Resolved: Kidney stone / SNOMED CT [id number] Histories No education data available. Social & Psychosocial Habits No Data Available Past Medical History: Active HTN - Hypertension (7876998280) Hypothyroidism ([id number]) Family History: Entire family history is negative. Procedure history: hysterectomy. Comments: 04/07/2019 14:12 EDT - KEITH HORNE RN total Social History Social & Psychosocial Habits Alcohol 04/07/2019 Alcohol Use History, Social Habits No Substance Abuse 04/07/2019 Recreational Drug Use History No Recreational Drug Use Last 12 Months No Tobacco 04/07/2019 Smoking Status Never (less than 100 in l . Physical Examination VS/Measurements No qualifying data available General: Alert and oriented. Eye: Pupils are equal, round and reactive to light. HENT: Normocephalic. Neck: Supple, No carotid bruit, No jugular venous distention. Respiratory: Lungs are clear to auscultation, Respirations are non-labored, Breath sounds are equal. Cardiovascular: Normal rate, Regular rhythm, No murmur, No gallop, Good pulses equal in all extremities. Gastrointestinal: Soft, Non-tender, Non-distended, Normal bowel sounds. Musculoskeletal: Normal range of motion, Normal strength. Integumentary: Warm, Dry, [place]. Neurologic: Alert, Oriented. Psychiatric: Cooperative. Review / Management No qualifying data available Cardiac Markers (Current Encounter/Past 24 Hours) No Cardiac Marker Results Found (Past 24 Hours) Blood Gases (Current Encounter/Past 24 Hours) No Blood Gas Results Found (Past 24 Hours) No Radiology Results Found Results review: No qualifying data available. Impression and Plan IMPRESSION: * Recurrent limiting spells of chest pain at times activity related. FC II. Abnormal EKG T wave inversion on anterior leads * HLD * Hypothyroidism * Poor dentition PLAN; L heart cardiac cath with possible catheter based intervention. Risks, benefits, and alternative therapy discussed in detail. She has given verbal and written consent. Obtain echo result from Dr. Alanis. CV meds pending cath. documented in this encounter Plan of Treatment Not on file documented as of this encounter Visit Diagnoses Not on filedocumented in this encounter Care Teams Electronic Die Maker Relationship Specialty Start Date End Date Carlos Laguna MD [address] [place] [id number] PCP - General Family Medicine 02/07/23 documented as of this encounter
--- OUTSIDE RECORDS SUMMARY | 2025-03-22 20:47 | XMS_ITS | Encounter Summary ---
Author Organization [employer] ([place], [place], [place], [place]) Address [address] [place] [address] Care Team Providers Care Bottom Filler Name Role Phone Carlos Laguna MD Primary Care Provider [phone] Encounter Details Date Type Department Care Team (Late st Contact Info) Description 04/07/2019 Transcribed Document [facility] Family Medicine [address] [place] [address] ProviderMiryam MD [address] [place] [address] Social History Tobacco Use Types Packs/Day Years Used Date Smoking Tobacco: Never Assessed Comments Unknown Sex and Gender Information Value Date Recorded Sex Assigned at Not on file Legal Sex Female 6:39 PM CDT Gender Identity Not on file Sexual Orientation Not on file documented as of this encounter Miscellaneous Notes * Cerner Conversion Note - Miryam Gastelum MD - 04/07/2019 9:17 PM CDT Patient Education Materials Follows: Moderate Conscious Sedation, Adult, Care After These instructions provide you with information about caring for yourself after your procedure. Your health care provider may also give you more specific instructions. Your treatment has been planned according to current medical practices, but problems sometimes occur. Call your health care provider if you have any problems or questions after your procedure. What can I expect after the procedure? After your procedure, it is common: ??? To feel sleepy for several hours. ??? To feel clumsy and have poor balance for several hours. ??? To have poor judgment for several hours. ??? To vomit if you eat too soon. Follow these instructions at home: For at least 24 hours after the procedure: ??? Do not: ? Participate in activities where you could fall or become injured. ? Drive. ? Use heavy machinery. ? Drink alcohol. ? Take sleeping pills or medicines that cause drowsiness. ? Make important decisions or sign legal documents. ? Take care of children on your own. ??? Rest. Eating and drinking ??? Follow the diet recommended by your health care provider. ??? If you vomit: ? Drink water, juice, or soup when you can drink without vomiting. ? Make sure you have little or no nausea before eating solid foods. General instructions ??? Have a responsible adult stay with you until you are awake and alert. ??? Take rrjm-nmz-bjmwawm and prescription medicines only as told by your health care provider. ??? If you smoke, do not smoke without supervision. ??? Keep all follow-up visits as told by your health care provider. This is important. Contact a health care provider if: ??? You keep feeling nauseous or you keep vomiting. ??? You feel light-headed. ??? You develop a rash. ??? You have a fever. Get help right away if: ??? You have trouble breathing. This information is not intended to replace advice given to you by your health care provider. Make sure you discuss any questions you have with your health care provider. Document Released: 06/08/2014 Document Revised: 01/20/2017 Document Reviewed: 12/07/2016 [employer] Interactive Patient Education ? 2019 [employer] Transradial Angiogram Transradial angiogram is an imaging test. This test uses X-ray images and colored dye that is made up of an iodine solution (contrast dye). This test is done to check for any abnormalities in the vessels that might affect blood flow, such as: ??? A blocked blood vessel. ??? A narrowed blood vessel. ??? A blood clot. ??? Abnormal, inherited blood vessel connections. During this test, a small, flexible tube (catheter) is inserted into an artery in the wrist (radial artery). The catheter is moved from the radial artery into other blood vessels in the body that need to be examined. Contrast dye is used to make blood vessels visible on X-ray images that are taken during the procedure. Tell a health care provider about: ??? Any allergies you have. ??? All medicines you are taking, including vitamins, herbs, eye drops, creams, and xzkr-lwr-vvuyjdr medicines. ??? Any problems you or family members have had with anesthetic medicines. ??? Any blood disorders you have. ??? Any surgeries you have had. ??? Any medical conditions you have. ??? Whether you are or may be . What are the risks? Generally, this is a safe procedure. However, problems may occur, including: ??? Infection. ??? Bleeding. ??? Allergic reactions to medicines or dyes. ??? Damage to other structures or organs, such as the blood vessels, lungs, or heart. ??? Blood clots. ??? Blood flow through the radial artery stopping or slowing down. This is rare. What happens before the procedure? Ask your health care provider about: ? Changing or stopping your regular medicines. This is especially important if you are taking diabetes medicines or blood thinners. ? Taking medicines such as aspirin and ibuprofen. These medicines can thin your blood. Do not take these medicines before your procedure if your health care provider instructs you not to. ??? Follow instructions from your health care provider about eating or drinking restrictions. ??? Do not use tobacco products for at least 24 hours before your procedure or as told by your health care provider. This includes cigarettes, chewing tobacco, or e-cigarettes. ??? Ask your health care provider how your surgical site will be marked or identified. ??? You may be given antibiotic medicine to help prevent infection. ??? You may have a physical exam. ??? You may have tests, including: ? Blood tests. ? X-rays. ??? Plan to have someone take you home after the procedure. ??? If you will be going home right after the procedure, plan to have someone with you for 24 hours. What happens during the procedure? To reduce your risk of infection: ? Your health care team will wash or sanitize their hands. ? Your skin will be washed with soap. ??? An IV tube will be inserted into one of your veins. ??? You will be given the following: ? A medicine to help you relax (sedative). ? A medicine that is injected to numb the area near the radial artery in your wrist (local anesthetic). ??? A needle will be inserted into your radial artery in your wrist. ??? A catheter will be inserted into your radial artery. The needle helps guide the catheter into your radial artery. ??? The catheter will be moved through your body to the desired blood vessel. An X-ray machine (fluoroscope) will help your health care provider bring the catheter to the correct place in your body. ??? Contrast dye will be injected into the catheter and will travel to the blood vessel that is being examined. ??? X-ray images will be taken of how the dye flows through your blood vessel. While the images are being taken, you may be given instructions on breathing, swallowing, moving, or talking. ??? The catheter and needle will be removed from your body. ??? A pressure (compression) wrap will be applied to your wrist to stop bleeding. The procedure may vary among health care providers and hospitals. What happens after the procedure? You will need to keep your wrist still for as long as told by your health care provider. ??? The pressure applied to your wrist will be gradually decreased until the compression wrap is removed. ??? You may have soreness and bruising in your wrist. This is normal. This should get better within about 1 week. ??? Your blood pressure, heart rate, breathing rate, and blood oxygen level will be monitored often until the medicines you were given have worn off. ??? You may continue to receive fluids and medicines through an IV tube. ??? Do not drive for 24 hours if you received a sedative. ??? You may have to wear compression stockings. These stockings help to prevent blood clots and reduce swelling in your legs. This information is not intended to replace advice given to you by your health care provider. Make sure you discuss any questions you have with your health care provider. Document Released: 05/12/2013 Document Revised: 04/20/2017 Document Reviewed: 07/22/2016 [employer] Interactive Patient Education ? 2019 [employer] Radial Site Care Refer to this sheet in the next few weeks. These instructions provide you with information about caring for yourself after your procedure. Your health care provider may also give you more specific instructions. Your treatment has been planned according to current medical practices, but problems sometimes occur. Call your health care provider if you have any problems or questions after your procedure. What can I expect after the procedure? After your procedure, it is typical to have the following: ??? Bruising at the radial site that usually fades within 1?2 weeks. ??? Blood collecting in the tissue (hematoma) that may be painful to the touch. It should usually decrease in size and tenderness within 1?2 weeks. Follow these instructions at home: ??? Take medicines only as directed by your health care provider. ??? You may shower 24?48 hours after the procedure or as directed by your health care provider. Remove the bandage (dressing) and gently wash the site with plain soap and water. Pat the area dry with a clean towel. Do not rub the site, because this may cause bleeding. ??? Do not take baths, swim, or use a hot tub until your health care provider approves. ??? Check your insertion site every day for redness, swelling, or drainage. ??? Do not apply powder or lotion to the site. ??? Do not flex or bend the affected arm for 24 hours or as directed by your health care provider. ??? Do not push or pull heavy objects with the affected arm for 24 hours or as directed by your health care provider. ??? Do not lift over 10 lb (4.5 kg) for 5 days after your procedure or as directed by your health care provider. ??? Ask your health care provider when it is okay to: ? Return to work or school. ? Resume usual physical activities or sports. ? Resume sexual activity. ??? Do not drive home if you are discharged the same day as the procedure. Have someone else drive you. ??? You may drive 24 hours after the procedure unless otherwise instructed by your health care provider. ??? Do not operate machinery or power tools for 24 hours after the procedure. ??? If your procedure was done as an outpatient procedure, which means that you went home the same day as your procedure, a responsible adult should be with you for the first 24 hours after you arrive home. ??? Keep all follow-up visits as directed by your health care provider. This is important. Contact a health care provider if: ??? You have a fever. ??? You have chills. ??? You have increased bleeding from the radial site. Hold pressure on the site. Get help right away if: ??? You have unusual pain at the radial site. ??? You have redness, warmth, or swelling at the radial site. ??? You have drainage (other than a small amount of blood on the dressing) from the radial site. ??? The radial site is bleeding, and the bleeding does not stop after 30 minutes of holding steady pressure on the site. ??? Your arm or hand becomes pale, cool, tingly, or numb. This information is not intended to replace advice given to you by your health care provider. Make sure you discuss any questions you have with your health care provider. Document Released: 09/20/2011 Document Revised: 01/23/2017 Document Reviewed: 03/06/2015 [employer] Interactive Patient Education ? 2019 [employer] Echocardiogram An echocardiogram is a procedure that uses painless sound waves (ultrasound) to produce an image of the heart. Images from an echocardiogram can provide important information about: ??? Signs of coronary artery disease (CAD). ??? Aneurysm detection. An aneurysm is a weak or damaged part of an artery wall that bulges out from the normal force of blood pumping through the body. ??? Heart size and shape. Changes in the size or shape of the heart can be associated with certain conditions, including heart failure, aneurysm, and CAD. ??? Heart muscle function. ??? Heart valve function. ??? Signs of a past heart attack. ??? Fluid buildup around the heart. ??? Thickening of the heart muscle. ??? A tumor or infectious growth around the heart valves. Tell a health care provider about: ??? Any allergies you have. ??? All medicines you are taking, including vitamins, herbs, eye drops, creams, and zsjy-bhq-uqmwerj medicines. ??? Any blood disorders you have. ??? Any surgeries you have had. ??? Any medical conditions you have. ??? Whether you are or may be . What are the risks? Generally, this is a safe procedure. However, problems may occur, including: ??? Allergic reaction to dye (contrast) that may be used during the procedure. What happens before the procedure? No specific preparation is needed. You may eat and drink normally. What happens during the procedure? An IV tube may be inserted into one of your veins. ??? You may receive contrast through this tube. A contrast is an injection that improves the quality of the pictures from your heart. ??? A gel will be applied to your chest. ??? A wand-like tool (transducer) will be moved over your chest. The gel will help to transmit the sound waves from the transducer. ??? The sound waves will harmlessly bounce off of your heart to allow the heart images to be captured in real-time motion. The images will be recorded on a computer. The procedure may vary among health care providers and hospitals. What happens after the procedure? You may return to your normal, everyday life, including diet, activities, and medicines, unless your health care provider tells you not to do that. Summary ??? An echocardiogram is a procedure that uses painless sound waves (ultrasound) to produce an image of the heart. ??? Images from an echocardiogram can provide important information about the size and shape of your heart, heart muscle function, heart valve function, and fluid buildup around your heart. ??? You do not need to do anything to prepare before this procedure. You may eat and drink normally. ??? After the echocardiogram is completed, you may return to your normal, everyday life, unless your health care provider tells you not to do that. This information is not intended to replace advice given to you by your health care provider. Make sure you discuss any questions you have with your health care provider. Document Released: 08/15/2001 Document Revised: 09/20/2017 Document Reviewed: 09/20/2017 [employer] Interactive Patient Education ? 2019 [employer] documented in this encounter Plan of Treatment Not on file documented as of this encounter Visit Diagnoses Not on filedocumented in this encounter Care Teams Bottom Filler Relationship Specialty Start Date End Date Carlos Laguna MD [address] [place] [phone] PCP - General Family Medicine 02/07/23 documented as of this encounter
--- OUTSIDE RECORDS SUMMARY | 2025-03-22 20:47 | XMS_ITS | Clinical Summary ---
Author Organization [facility] Address [address] [place] [address] Care Team Providers Care School Child Care Attendant Name Role Phone Provider, External Primary Care Provider Unavail able Allergies No known active allergies Medications No known medications Active Problems No known active problems Social History Tobacco Use Types Packs/Day Years Used Date Smoking Tobacco: Never Alcohol Use Standard Drinks/Week Comments Never 0 (1 standard drink = 0.6 oz pur e alcohol) Comments Unknown Sex and Gender Information Value Date Recorded Sex Assigned at Not on file Legal Sex Female 8:40 PM EDT Gender Identity Not on file Sexual Orientation Not on file Last Filed Vital Signs Vital Sign Reading Time Taken Comments Blood Pressure 142/95 05/04/2021 11:26 PM EDT Pulse 77 05/04/2021 11:00 PM EDT Temperature 37.1 C (98.8 F) 05/04/2021 9:39 PM EDT Respiratory Rate 18 05/04/2021 11:00 PM EDT Oxygen Saturation 96% 05/04/2021 11:00 PM EDT Inhaled Oxygen Concentration - - Weight 68 kg (150 lb) 05/04/2021 3:24 PM EDT Height - - Body Mass Index - - Plan of Treatment Health Maintenance Due Date Last Done Comments [facility]-Depression Screening 1975 [facility]-Infant/Child/Adol SDOH Screenings 1975 [facility]- SDOH Screenings 1994 [facility]-Adult SDOH Screenings 1994 [facility]-DTaP,Tdap,and Td Vaccine s (1 - Tdap) 1995 [facility]-Hepatitis B Vaccines (1 of 3 - 19+ 3-dose series) 1995 [facility]-Pap Smear 1997 [facility]-Cervical Cancer Screening 2006 [facility]-HPV/Cotest 2006 CT Colonography 2021 Colonoscopy 2021 FIT-DNA 2021 FIT 2021 FOBT 2021 Sigmoidoscopy 2021 [facility]-Colorectal Cancer Screening 2021 [id number] Vaccine (1 - 20 24-25 season) 2024 [facility]-Influenza Vaccine (#1) 2025 [facility]-Zoster Vaccines (1 of 2) 2026 HPV Vaccines Aged Out No longer eligi ble based on patient's age to complete this topic [facility]-HIB Vaccines Aged Out No longer e ligible based on patient's age to complete this topic [facility]-Hepatitis A Vaccines Aged Out No longer eligible based on patient's age to complete this topic [facility]-IPV Vaccines Aged Out No longer e ligible based on patient's age to complete this topic [facility]-Pneumococcal Vaccine: Pediatrics (0 to 5 Years) and At-Risk Patients (6 to 49 Years) Aged Out No long er eligible based on patient's age to complete this topic [facility]-Rotavirus Vaccines Aged Out No lo nger eligible based on patient's age to complete this topic Care Teams School Child Care Attendant Relationship Specialty Start Date End Date Provider, External PCP - General 05/04/21
--- OUTSIDE RECORDS SUMMARY | 2025-03-22 20:47 | XMS_ITS | Encounter Summary ---
Author Organization [employer] ([place], [place], [place], [place]) Address [address] [place] [address] Care Team Providers Care Front End Developer Designer Name Role Phone Carlos Laguna MD Primary Care Provider [phone] Encounter Details Date Type Department Care Team (Late st Contact Info) Description 04/07/2019 Transcribed Document [facility] [place] [address] [place] [address] ProviderMiryam MD [address] [place] [address] Social History Tobacco Use Types Packs/Day Years Used Date Smoking Tobacco: Never Assessed Comments Unknown Sex and Gender Information Value Date Recorded Sex Assigned at Not on file Legal Sex Female 6:39 PM CDT Gender Identity Not on file Sexual Orientation Not on file documented as of this encounter Miscellaneous Notes * Cerner Conversion Note - Miryam ProviderMD - 04/07/2019 9:18 PM CDT Nursing Discharge Summary Entered On: 04/07/2019 21:19 EDT Performed On: 04/07/2019 21:18 EDT by MALLY CRONIN RN Discharge Documentation Discharge Date/Time : 04/07/2019 22:30 EDT MALLY CRONIN RN - 04/07/2019 22:39 EDT Patient Disposition, General : Discharge Discharge To : Home with ambulatory/outpatient follow-up Mode Of Departure, General Discharge : Private vehicle Accompanied By, Discharge : Spouse IV Discontinued : Yes Personal Belongings With Patient : Yes Patient Education Completed : Yes Teaching Method : Demonstration, Explanation Teaching Evaluation : Returns demonstration, Verbalizes understanding MALLY CRONIN, RN - 04/07/2019 21:18 EDT Electronically signed by [facility] Conversion Electrical Test Technician Cerner at 12/16/2022 5:20 PM CDT documented in this encounter Plan of Treatment Not on file documented as of this encounter Visit Diagnoses Not on filedocumented in this encounter Care Teams Front End Developer Designer Relationship Specialty Start Date End Date Carlos Laguna MD [address] [place] [phone] PCP - General Family Medicine 02/07/23 documented as of this encounter
--- OUTSIDE RECORDS SUMMARY | 2025-03-22 20:47 | XMS_ITS | Clinical Summary ---
Author Organization [employer] ([place], [place], [place], [place]) Address [address] [place] [address] Care Team Providers Care Wildland Fire Operations Specialist Name Role Phone Carlos Laguna MD Primary Care Provider [phone] Allergies No known active allergies Medications HYDROcodone-marcel [...] Date Fahad rded Speak language other than Cook Islander at home Not on file 09/19/2023 Want [...] 02/07/2023 4:28 PM EDT Plan of Treatment Health Maintenance Due Date Last Done Comments CT Colonography 1976 Colonoscopy 1976 Colorectal Cancer Screening 1976 FOBT/FIT 1976 Fit-DNA (Cologuard) 1976 Sigmoidoscopy 1976 Depression Screening (12+) 1988 HIV Screening 1991 Hepatitis C Screening 1994 DTAP/TDAP/TD VACCINES (1 - Tdap) 1995 Pap Smear 1997 Breast Cancer Screening 2016 Lipid Panel 2021 Tobacco Cessation Counseling and Screening (12+) 02/08/2024 02/07/2023 COVID-19 VACCINE (1 - 2023-2 5 season) 2024 Influenza Vaccine (#1) 2025 Pneumococcal Vaccine: 0-49 Years Aged Out No longer eligible based on patient's age to complete this topic Insurance [facility] Care Teams Wildland Fire Operations Specialist Relationship Specialty Start Date End Date Carlos Laguna MD [address] [place] [phone] PCP - General Family Medicine 02/07/23
--- OUTSIDE RECORDS SUMMARY | 2025-03-22 20:47 | XMS_ITS | Clinical Summary ---
Author Organization [facility] Address [address] [place] [address] Care Team Providers Care Escalator Constructor Name Role Phone Carlos Laguna MD Primary Care Provider [phone] Allergies No known active allergies Medications HYDROcodone-marcel taminophen (NORCO) 7.5-325 MG per tabletIndicatio ns:Left ureteral stone Take 1-2 tablets by mouth Every 4 (Four) Hours As Needed for Moderate Pain (Pain). 25 tablet 05/14/2017 Active Social History Tobacco Use Types Packs/Day Years Used Date Smoking Tobacco: Never Alcohol Use Standard Drinks/Week Comments No 0 (1 standard drink = 0.6 oz pur e alcohol) Abuse Screen Answer Date Recorded Unsafe at Home or Work/School Not on file Feels Threatened by Someone? Not on file 07/2023 Does Anyone Keep You from Co ntacting Others or Doint Things Outside the Home? Not on file 06/11/2023 Physical Sign of Abuse Present Not on file 1 Housing Stability Answer Date Recorded Current Living Arrangements Not on file 06/01 Potentially Unsafe Housing Conditions Not on lula e 06/11/2023 Family and Community Support Answer Todd e Recorded Help with Day-to-Day Activities Not on file 06/11/2023 Lonely or Isolated Not on file 06/11/2023 Employment Answer Date Recorded Do you want help finding or keeping work or a lupis b? Not on file 06/11/2023 Disabilities Answer Date Recorded Concentrating, Remembering, or Making Decisions Difficulty Not on file 06/11/2023 Doing Errands Independently Difficulty Not on fi le 06/11/2023 Education Answer Date Recorded Help with school or training? Not on file Preferred Language Not on file 06/11/2023 Comments No Sex and Gender Information Value Date Recorded Sex Assigned at Not on file Legal Sex Female 3:34 PM EDT Gender Identity Not on file Sexual Orientation Not on file Last Filed Vital Signs Vital Sign Reading Time Taken Comments Blood Pressure 129/95 05/14/2017 12:30 PM EDT Pulse 80 05/14/2017 12:30 PM EDT Temperature 36.1 C (97 F) 05/14/2017 12:30 PM EDT Respiratory Rate 20 05/14/2017 12:30 PM EDT Oxygen Saturation 97% 05/14/2017 12:30 PM EDT Inhaled Oxygen Concentration - - Weight 61.2 kg (135 lb) 05/13/2017 4:28 PM EDT Height 165.1 cm (5' 5 ) 05/13/2017 4:28 PM EDT Body Mass Index 22.47 05/13/2017 4:28 PM EDT Plan of Treatment Health Maintenance Due Date Last Done Comments Annual Gynecologic Pelvic an d Breast Exam 1976 TDAP/TD VACCINES (1 - Tdap) 1995 MAMMOGRAM 2016 ANNUAL PHYSICAL 05/14/2017 HEPATITIS C SCREENING 05/14/2017 COLOGUARD 2021 COLON CANCER SCREENING 5 YEA R SIGMOIDOSCOPY 2021 COLONOSCOPY 2021 COL[address]ECTAL CANCER SCREENING 2021 CT COLONOGRAPHY 2021 FECAL OCCULT BLOOD TEST 2021 FIT Testing (1 year) 2021 COVID-19 Vaccine ( - 2023-2 5 season) 2024 INFLUENZA VACCINE 06/01/2025 Pneumococcal Vaccine 0-49 Aged Out No longer eligible based on patient's age to complete this topic Medical Devices Implanted Type Area Filter Plant Supervisor Device Identifier Shelf Expiration Date Model / Serial / Lot Stent Percuflx No Gw 6x24 - [id number] Implanted:Qty : 1 on 05/14/2017 by Rolando Presley MD at [facility] Implant Left: [employer] JOSEFA [id number] 0 / / Insurance [employer] PPO Care Teams Escalator Constructor Relationship Specialty Start Date End Date Carlos Laguna MD [address] [id number] PCP - General Family Medicine 05/14/17
--- OUTSIDE RECORDS SUMMARY | 2025-03-22 20:47 | XMS_ITS | Encounter Summary ---
Author Organization [employer] ([place], [place], [place], [place]) Address [address] [place] [address] Care Team Providers Care Flat Surfacer Name Role Phone Carlos Laguna MD Primary Care Provider [phone] Encounter Details Date Type Department Care Team (Late st Contact Info) Description 04/07/2019 Transcribed Document [facility] [place] Family Medicine [address] [place] [address] ProviderMiryam MD [address] [place] [address] Social History Tobacco Use Types Packs/Day Years Used Date Smoking Tobacco: Never Assessed Comments Unknown Sex and Gender Information Value Date Recorded Sex Assigned at Not on file Legal Sex Female 6:39 PM CDT Gender Identity Not on file Sexual Orientation Not on file documented as of this encounter Miscellaneous Notes * Cerner Conversion Note - Miryam ProviderMD - 04/07/2019 9:19 PM CDT Stroke/Warfarin Instructions Entered On: 04/07/2019 21:20 EDT Performed On: 04/07/2019 21:19 EDT by MALLY CRONIN RN Stroke/Warfarin Instructions Stroke/TIA Discharge Ins : N/A Warfarin Discharge Ins : N/A MALLY CRONIN RN - 04/07/2019 21:19 EDT Stroke/TIA Discharge Instructions My LDL Level: : LDL Level No qualifying data available. MALLY CRONIN RN - 04/07/2019 21:19 EDT documented in this encounter Plan of Treatment Not on file documented as of this encounter Visit Diagnoses Not on filedocumented in this encounter Care Teams Flat Surfacer Relationship Specialty Start Date End Date Carlos Laguna MD [facility] [place] [phone] PCP - General Family Medicine 02/07/23 documented as of this encounter
--- OUTSIDE RECORDS SUMMARY | 2025-03-22 20:47 | XMS_ITS | Encounter Summary ---
Author Organization [employer] ([place], [place], [place], [place]) Address [address] [place] [address] Care Team Providers Care Broomcorn Scraper Name Role Phone Carlos Laguna MD Primary Care Provider [phone] Encounter Details Date Type Department Care Team (Late st Contact Info) Description 04/07/2019 Transcribed Document [facility] [place] [address] [place] [address] ProviderMiryam MD [address] [place] [address] Social History Tobacco Use Types Packs/Day Years Used Date Smoking Tobacco: Never Assessed Comments Unknown Sex and Gender Information Value Date Recorded Sex Assigned at Not on file Legal Sex Female 6:39 PM CDT Gender Identity Not on file Sexual Orientation Not on file documented as of this encounter Miscellaneous Notes * Cerner Conversion Note - Miryam ProviderMD - 04/07/2019 2:32 PM CDT Event Note Entered On: 04/07/2019 14:33 EDT Performed On: 04/07/2019 14:32 EDT by KEITH HORNE, RN Event Note Event Location : Other: 1432 - report to May Banda RN. Dr Gomez in at this time to reveiw procedure with patient and family ( ). KEITH HORNE, RN - 04/07/2019 14:32 EDT Electronically signed by Carmen [facility] Conversion Real Estate Office Manager Cerner at 12/16/2022 5:19 PM CDT documented in this encounter Plan of Treatment Not on file documented as of this encounter Visit Diagnoses Not on filedocumented in this encounter Care Teams Broomcorn Scraper Relationship Specialty Start Date End Date Carlos Laguna MD [address] [place] [phone] PCP - General Family Medicine 02/07/23 documented as of this encounter
--- OUTSIDE RECORDS SUMMARY | 2025-03-22 20:47 | XMS_ITS | Encounter Summary ---
Author Organization [employer] ([place], [place], [place], [place]) Address [address] [place] [address] Care Team Providers Care Customer Energy Specialist Name Role Phone Carlos Laguna MD Primary Care Provider [phone] Encounter Details Date Type Department Care Team (Late st Contact Info) Description 04/07/2019 Transcribed Document [facility] [place] [address] [place] [address] ProviderMiryam MD [address] [place] [address] Social History Tobacco Use Types Packs/Day Years Used Date Smoking Tobacco: Never Assessed Comments Unknown Sex and Gender Information Value Date Recorded Sex Assigned at Not on file Legal Sex Female 6:39 PM CDT Gender Identity Not on file Sexual Orientation Not on file documented as of this encounter Miscellaneous Notes * Cerner Conversion Note - Miryam ProviderMD - 04/07/2019 7:00 PM CDT Pain Assessment Entered On: 04/07/2019 20:41 EDT Performed On: 04/07/2019 19:49 EDT by MALLY CRONIN RN Intervention Information: morphine Performed by MALLY CRONIN RN on 04/07/2019 19:19:00 EDT morphine,1mg IV Push,Left Antecubital Nataly Pain Assessment Pain Scale Used : 0-10 Scale MALLY CRONIN RN - 04/07/2019 20:41 EDT Pain Scale Intensity : 2 MALLY CRONIN RN - 04/07/2019 20:41 EDT Image 4 - Images currently included in the form version of this document have not been included in the text rendition version of the form. documented in this encounter Plan of Treatment Not on file documented as of this encounter Visit Diagnoses Not on filedocumented in this encounter Care Teams Customer Energy Specialist Relationship Specialty Start Date End Date Carlos Laguna MD [address] [place] [phone] PCP - General Family Medicine 02/07/23 documented as of this encounter
--- OUTSIDE RECORDS SUMMARY | 2025-03-22 20:47 | XMS_ITS | Encounter Summary ---
Author Organization [employer] ([place], [place], [place], [place]) Address [address] [place] [address] Care Team Providers Care Dna Analyst Name Role Phone Carlos Laguna MD Primary Care Provider [phone] Encounter Details Date Type Department Care Team (Late st Contact Info) Description 04/07/2019 Transcribed Document [facility] [place] [facility] [place] [address] ProviderMiryam MD [address] [place] [address] Social History Tobacco Use Types Packs/Day Years Used Date Smoking Tobacco: Never Assessed Comments Unknown Sex and Gender Information Value Date Recorded Sex Assigned at Not on file Legal Sex Female 6:39 PM CDT Gender Identity Not on file Sexual Orientation Not on file documented as of this encounter Miscellaneous Notes * Cerner Conversion Note - Miryam Gastelum MD - 04/07/2019 5:23 PM CDT DATE OF PROCEDURE: 04/07/2019 LEFT HEART CATH REPORT INDICATION: Chest pain, dyspnea, new prominent T-wave inversion in anterior leads. REFERRING PHYSICIANS: 1. Dr. Carlos Laguna. 2. Brea Alanis MD PROCEDURE: Standard left heart catheterization. TECHNIQUE: A 5/6-Romanian sheath placed in the right radial artery. 5 mg verapamil, 3000 units of heparin were administered via the radial artery sheath. Wenceslao catheter was used for selective angiography of the left and right coronary arteries and obtaining pressures in the left ventricle. Left ventriculogram was performed. There was transient dye staining with left ventriculography. There was no hemodynamic or EKG change. Pressures recorded during pullback of the catheter from the left ventricle into the ascending aorta. No complications. HEMODYNAMICS: Left ventricle 140/20 mmHg, aorta 140/90 mmHg. DIAGNOSES: 1. Angiographically normal coronary arteries. 2. Mildly elevated left ventricular filling pressure without gradient across the aortic valve. CORONARY ANATOMY: 1. Left main trunk: Angiographically normal. 2. LAD: Moderate caliber vessel, which gives rise to several small caliber diagonal branches before extending beyond the apex. The LAD appears to be angiographically normal. 3. Circumflex artery: Large caliber vessel, which gives rise to a tiny high lateral branch, a small caliber lateral branch, a small caliber posterolateral branch. Circumflex artery is angiographically normal. 4. Right coronary artery: Dominant vessel. Moderate caliber vessel, which gives rise to a small caliber posterior descending artery, a small caliber posterolateral branch. The right coronary artery is angiographically normal. 5. Left ventricle: Mildly elevated left ventricular filling pressure without gradient across the aortic valve. Angiographically, the left ventriculogram indicates normal LV systolic function. There is transient dye staining, which resolved. IMPRESSION: Angiographically, the patient has normal coronary artery disease. There is normal left ventricular systolic function. There is transient dye staining with left ventriculography. No indication for revascularization. Risk factor modification and medical management and assessment of noncardiac chest pain is recommended. Mark Gomez M.D. Dict: 04/07/2019 17:23:53 Trans: 04/07/2019 21:39:28 CC1: Mark Gomez M.D. CC2: Brea Alanis MD CC3: Dr. Carlos Laguna documented in this encounter Plan of Treatment Not on file documented as of this encounter Visit Diagnoses Not on filedocumented in this encounter Care Teams Dna Analyst Relationship Specialty Start Date End Date Carlos Laguna MD [address] [place] [phone] PCP - General Family Medicine 02/07/23 documented as of this encounter
--- OUTSIDE RECORDS SUMMARY | 2025-03-22 20:47 | XMS_ITS | Encounter Summary ---
Author Organization [employer] ([place], [place], [place], [place]) Address [address] [place] [address] Care Team Providers Care Sap Technical Architect Name Role Phone Carlos Laguna MD Primary Care Provider [phone] Encounter Details Date Type Department Care Team (Late st Contact Info) Description 04/07/2019 Transcribed Document [facility] [place] [facility], [facility] [place] [address] ProviderMiryam MD [address] [place] [address] Social History Tobacco Use Types Packs/Day Years Used Date Smoking Tobacco: Never Assessed Comments Unknown Sex and Gender Information Value Date Recorded Sex Assigned at Not on file Legal Sex Female 6:39 PM CDT Gender Identity Not on file Sexual Orientation Not on file documented as of this encounter Miscellaneous Notes * Cerner Conversion Note - Miryam Gastelum MD - 04/07/2019 9:20 PM CDT [facility] Redd [id number] KYLIE VALE :1975 Visit Time:04/07/2019 Your Visit Summary Your Care Team Admitting Physician - TERESA EDMONDSON MD-CAR Attending Physician - TERESA EDMONDSON MD-CAR Primary Care Physician - CARLOS LAGUNA (REF), ALEXIA Referring Physician - TERESA EDMONDSON MD-CAR Your Diagnosis Unstable angina, Unstable angina Discharge Vitals Heart Rate (Monitored) 70 Respiratory Rate 17 Blood Pressure 131/66 What to do next Instructions From Your Care Team Diet after Discharge: Resume usual diet as tolerated, _, _ Fluid Restriction after Discharge: _ Activity after Discharge: _, Rest and relax today, _ Lifting Restrictions: no lifting over 1 pound for 48 hours Weight Bearing: _ Bedrest: _ Driving after Discharge: Do not drive for 24 hours May Return to Work/School: Showering/Bathing: may remove dressing and shower after 24 hours. No tub baths or soaking for 5 days., _ Notify Provider of: Wound/Incision Care after Discharge: _, _ Medical Equipment for Home Use: Home Health Services: Community Services: Follow-Up Appointments Follow Up with LISETH CHRISTENSEN When Within 2 to 4 weeks Where: [address] [facility] [place] [address]- [facility] (1) Medications What How Much When Instructions Next Dose aspirin (aspirin 325 mg oral tablet) 1 Tablet(s) Oral Every Day atorvastatin (atorvastatin 40 mg oral tablet) 1 Tablet(s) Oral Every Day levothyroxine (levothyroxine 50 mcg (0.05 mg) oral tablet) 1 Tablet(s) Oral Every Day metoprolol (Metoprolol Succinate ER 25 mg oral tablet, extended release) 1 Tablet(s) Oral Every Day continue all meds as ordered Take your medications faithfully. Do NOT skip medication. Do NOT stop taking medications without the direction of a physician. Carry a list of your medications with you at all times, and take this medication list with you to your first follow up visit. Report any side effects. Avoid herbal remedies unless discussed with your physician. As part of your treatment plan, your physician may have prescribed a limited course of a controlled substance. This medication may be given to help people with moderate or severe pain or for other medical conditions, but there are risks involved with treatment. Common side effects may include nausea, constipation, drowsiness, sweating, itching, dry mouth, and rash. More serious side effects may include cognitive and motor impairment, like problems with thinking, concentrating, alertness, and movement (e.g. slowed reflexes), and driving and operating heavy machinery can be dangerous. It is important for you to talk to your physician if you have these side effects or questions. These controlled substances can produce physical dependence and be habit-forming if taken for an extended period of time, which means that the body has gotten used to them and may experience withdrawal symptoms if they are abruptly stopped. Withdrawal symptoms can include runny nose, sweating, goose bumps, diarrhea, abdominal cramping, rapid heartbeat, difficulty sleeping, and nervousness. Please dispose of unused and medications per your retail pharmacy guidance. Allergies No Known Allergies Immunizations This Visit No Immunizations Found Stroke/TIA Instructions Mutually Agreed Upon Goals My LDL Level: My LDL Level: Education Materials Moderate Conscious Sedation, Adult, Care After These [...] you are awake and alert. ??? Take pyim-fbm-iinwpzi and prescription medicines only as told by [...] 06/08/2014 Document Revised: 01/20/2017 Document Reviewed: 12/07/2016 [employer] Patient Education ?? 2019 [employer]. Transradial Angiogram Transradial angiogram is an imaging [...] including vitamins, herbs, eye drops, creams, and gqmv-tuv-sfeaqat medicines. ??? Any problems you or family [...] 05/12/2013 Document Revised: 04/20/2017 Document Reviewed: 07/22/2016 [employer] Patient Education ?? 2019 [employer] Radial Site Care Refer to this [...] the radial site that usually fades within 1???2 weeks. ??? Blood collecting in the tissue (hematoma) that may be painful to the touch. It should usually decrease in size and tenderness within 1???2 weeks. Follow these instructions at home: ??? Take medicines only as directed by your health care provider. ??? You may shower 24???48 hours after the procedure or as directed [...] 09/20/2011 Document Revised: 01/23/2017 Document Reviewed: 03/06/2015 Elsevier Interactive Patient Education ?? 2019 [employer] Echocardiogram An echocardiogram is a procedure [...] including vitamins, herbs, eye drops, creams, and skhx-vhj-zzwcmdy medicines. ??? Any blood disorders you have. [...] 08/15/2001 Document Revised: 09/20/2017 Document Reviewed: 09/20/2017 [employer] Patient Education ?? 2019 [employer]. Emergency Awareness and Preventative Care STROKE is an EMERGENCY Every Minute Counts Act FAST and Check for these signs: FACE Does the face look uneven? ARM Does one arm drift down? SPEECH Does their speech sound strange? TIME Call at any sign of stroke Stroke Risk Factors Atrial Fibrillation (irregular heartbeat) Diabetes Family history of stroke Heart Disease Heavy alcohol use High Blood Pressure High Cholesterol Physical inactivity and obesity Smoking Cigarette Smoking The facts are clear, cigarette smoking will shorten your life. Smoking can cause many illnesses along the way. As a healthcare provider, we recommend that you stop smoking. Assistance with quitting is available by contacting 9-483-TKJKAdomikNOW. This is a free resource providing counseling, support, and referral. Or you may contact your personal physician. National Suicide Prevention Lifeline: The National Suicide Prevention Lifeline is a national network of local crisis centers that provides free and confidential emotional support to people in suicidal crisis or emotional distress 24 hours a day, 7 days a week. Don't Wait! Stop a Heart Attack Before it Starts What is a heart attack? A heart attack is damage or to a part of the heart from severely decreased or lack of blood flow to the heart. Over time, arteries can become narrow from the buildup of fat and cholesterol, which is called plaque. The plaque can rupture causing a blood clot to form. When the blood clot forms, the artery can become severely narrowed or completely blocked, causing a heart attack. Heart attack is the leading cause of in the [place]. 85% of muscle damage occurs within the first 2 hours. Delay in the recognition of heart attack symptoms increases the chances of . Know the early symptoms of a heart attack: Nausea Feeling of fullness in chest Jaw Pain Pain that travels down one or both arms Fatigue/being tired Anxiety Back Pain Chest pressure, squeezing, or discomfort Shortness of breath Sweating, or a cold sweat Feeling of impending doom There are unusual signs of a heart attack, too! Women, the elderly, and diabetics may present with atypical symptoms: Fainting/dizziness Weakness Confusion Risk Factors for a Heart Attack Some heart disease risk factors, such as age and family history, cannot be changed. Others, like smoking and lack of exercise, can be changed. Smoking High Cholesterol High Blood Pressure Family History Obesity Age Gender (Males are at higher risk) Lack of Exercise Diabetes Diet Stress Excessive Alcohol Intake If you or someone you know is experiencing the signs and symptoms of a heart attack, DON???T DELAY. Call immediately and seek help. If someone collapses, perform CPR! Do not attempt to drive if you are having symptoms of heart attack. Hands-Only CPR Why Hands-Only CPR? Hands-Only CPR has been shown to be as effective as conventional CPR for cardiac arrests that occur outside of a hospital. Survival depends on immediately receiving CPR from someone nearby. How do you perform Hands-Only CPR? There are two easy steps: Call if you see a teen or adult collapse Push hard and fast in the center of the chest at a beat of 100 beats per minute. Save a life! 4 WAYS TO GET AHEAD OF SEPSIS SEPSIS is a MEDICAL EMERGENCY. Time matters! Infections put you and your family at risk for a life-threatening condition called sepsis. Sepsis is the body's extreme response to an infection. It is life-threatening, and without timely treatment, sepsis can rapidly lead to tissue damage, organ failure, and . Sepsis happens when an infection you already have-in your skin, lungs, urinary tract or somewhere else-triggers a chain reaction throughout your body. 1 PREVENT INFECTIONS Take good care of chronic conditions. Talk to your doctor about getting the recommended vaccines. 2 PRACTICE GOOD HYGIENE Wash your hands frequently. Keep cuts or open sores clean and covered until they are healed. 3 KNOW THE SYMPTOMS Confusion or disorientation Shortness of breath High heart rate Fever, shivering, or feeling very cold Extreme pain or discomfort Clammy or sweaty skin 4 ACT FAST Get medical care IMMEDIATELY if you suspect sepsis or if you have an infection that is not getting better or is getting worse. To learn more about sepsis and how to prevent infections, visit www.cdc.gov/sepsis. Test Results Laboratory or Other Results This Visit (last charted value for your 04/07/2019 visit) Hematology 04/07/19 20:00:00 Sed Rate Auto: 3 mm/Hr -- Normal range between ( 0 and 20 ) Cardiac Specific Markers 04/07/19 17:55:00 CK: 120 Units/Liter -- Normal range between ( 26 and 192 ) ProBNP: 155 pg/mL -- Normal range between ( 0 and 125 ) Coagulation 04/07/19 17:55:00 D Dimer Quant: see comment mg/L FEU -- Normal range between ( 0.00 and 0.58 ) Echo 04/07/19 17:38:10 EC Echo Complete: EC Echo Complete Patient Name:KYLIE VALE I have received and understand this information and was given the opportunity to ask questions. Patient/Agricultural Services Director Name: Patient/Agricultural Services Director Signature: Relationship to Patient: Clinician/Hospital Agricultural Services Director Signature: Date: Electronically signed by Carmen [facility] Conversion Sql Server Dba Developer Joshner at 12/16/2022 5:29 PM CDT documented in this encounter Plan of Treatment Not on file documented as of this encounter Visit Diagnoses Not on filedocumented in this encounter Care Teams Sap Technical Architect Relationship Specialty Start Date End Date Carlos Laguna MD [address] [place] [address] PCP - General Family Medicine 02/07/23 documented as of this encounter
--- OUTSIDE RECORDS SUMMARY | 2025-03-22 20:47 | XMS_ITS | Encounter Summary ---
Author Organization [employer] ([place], [place], [place], [place]) Address [address] [place] [address] Care Team Providers Care Underground Repairer Name Role Phone Carlos Laguna MD Primary Care Provider [phone] Encounter Details Date Type Department Care Team (Late st Contact Info) Description 04/07/2019 Transcribed Document [facility] [place] Family Medicine [address] [place] [address] ProviderMiryam MD [address] [place] [address] Social History Tobacco Use Types Packs/Day Years Used Date Smoking Tobacco: Never Assessed Comments Unknown Sex and Gender Information Value Date Recorded Sex Assigned at Not on file Legal Sex Female 6:39 PM CDT Gender Identity Not on file Sexual Orientation Not on file documented as of this encounter Miscellaneous Notes * Cerner Conversion Note - Miryam ProviderMD - 04/07/2019 10:37 PM CDT Event Note Entered On: 04/07/2019 22:38 EDT Performed On: 04/07/2019 22:37 EDT by MALLY CRONIN RN Event Note Event Date/Time : 04/07/2019 22:37 EDT Description of Event : Dr. Gomez notified of critical troponin and new order to discharge patient with order to have troponin drawn tomorrow and fax to his office. Dr. Gomez also talked with Adrianna Styles. MALLY CRONIN RN - 04/07/2019 22:37 EDT Electronically signed by Iker Morales Conversion Water Quality Control Engineer Cerner at 12/16/2022 5:44 PM CDT documented in this encounter Plan of Treatment Not on file documented as of this encounter Visit Diagnoses Not on filedocumented in this encounter Care Teams Underground Repairer Relationship Specialty Start Date End Date Carlos Laguna MD [address] [place] [id number] PCP - General Family Medicine 02/07/23 documented as of this encounter
--- OUTSIDE RECORDS SUMMARY | 2025-03-22 20:47 | XMS_ITS | Encounter Summary ---
Author Organization [employer] ([place], [place], [place], [place]) Address [address] [place] [address] Care Team Providers Care Digital Strategy Director Name Role Phone Carlos Laguna MD Primary Care Provider [phone] Encounter Details Date Type Department Care Team (Late st Contact Info) Description 04/07/2019 Transcribed Document [facility] [place] [address] [place] [address] ProviderMiryam MD [address] [place] [address] Social History Tobacco Use Types Packs/Day Years Used Date Smoking Tobacco: Never Assessed Comments Unknown Sex and Gender Information Value Date Recorded Sex Assigned at Not on file Legal Sex Female 6:39 PM CDT Gender Identity Not on file Sexual Orientation Not on file documented as of this encounter Miscellaneous Notes * Cerner Conversion Note - Miryam ProviderMD - 04/07/2019 2:02 PM CDT Pre Procedure Adult Entered On: 04/07/2019 14:06 EDT Performed On: 04/07/2019 14:02 EDT by KEITH HORNE RN Height and Weight, Clinical Dosing Height Source : Stated Height Entry Format : [place] Height, Feet : 0 ft(Converted to: 0 cm, 0 Inch) Height, Inches : 62 Inch(Converted to: 5 ft 2 Inch, 157.48 cm) Clinical Height : 157.48 cm Weight Source : Standing scale Weight Entry Format : [place] Clinical Dosing Weight : 69.55 kg Weight, Pounds : 153 lb Body Surface Area (BSA) : 1.71 m2 Body Mass Index : 28 kg/m2 (HI) [place] Body Weight : 50 kg KEITH HORNE RN - 04/07/2019 14:02 EDT Health Histories Smoking Status : Never (less than 100 in lifetime; none in last 30 days) Smokeless Tobacco Status : Never KEITH HORNE RN - 04/07/2019 14:02 EDT Social History (As Of: 04/07/2019 14:34:50 EDT) Tobacco: Never (less than 100 in lifetime) Smoking Status. (Last Updated: 04/07/2019 14:06:25 EDT by KEITH HORNE, RN) Alcohol: Alcohol Use History No. (Last Updated: 04/07/2019 14:06:29 EDT by KEITH HORNE, RN) Substance Abuse: Drug Use Hx: No. Use in Last 12 Months: No. (Last Updated: 04/07/2019 14:06:34 EDT by KEITH HORNE, MIRELLA) Infectious Disease History Infectious Disease History : Chicken pox/Shingles, Influenza Fever/Chills Last 48 Hours : No Travel To Regions with Travel Advisories : No Travel Outside [place] Within Last 30 Days : No Contact With Traveler to Advisory Region : No Tuberculosis Symptoms : None KEITH HORNE RN - 04/07/2019 14:02 EDT Anesthesia/Transfusion History Family History of Anesthesia Reaction : No prior transfusion(s) Blood Transfusion Acceptable to Patient : Yes Transfusion History : Prior anesthesia without reaction Family History of Anesthesia Reaction : None KEITH HORNE RN - 04/07/2019 14:02 EDT Functional Assessment Living Situation : Home Current Home Treatments : None KEITH HORNE RN - 04/07/2019 14:02 EDT Psychosocial History Does Someone Depend on You for Care? : No Currently in Unsafe Situation : No Tried to Harm Yourself in the Past? : No Thoughts of Harming/Killing Yourself : No KEITH HORNE RN - 04/07/2019 14:02 EDT Advance Directive Patient has Advance Directive *Q : No, patient refuses Advance Directive information KEITH HORNE RN - 04/07/2019 14:02 EDT Teaching/Learning Assessment Barriers To Learning : None evident Learning Style Preferences Patient : Verbal explanation Learning Style Preferences Family : Verbal explanation KEITH HORNE RN - 04/07/2019 14:02 EDT Education Topics, Periop Preadmission Perioperative Education Grid IV's : Verbalizes understanding KEITH HORNE RN - 04/07/2019 14:02 EDT General Info Want Family/Rep/Phys Notified of Admit : No Emergency Contact #1 : Vega - Emergency Contact #1 Emergency Contact #1 Relationship : - Emergency Contact #2 : - Emergency Contact #2 Phone Number : - Emergency Contact #2 Relationship : - Primary Language : Stateless Communication Barrier : None KEITH HORNE RN - 04/07/2019 14:02 EDT Sleep Apnea Risk Assmt BMI Greater Than 35 kg/m2 : Yes Neck Circumference Greater Than 40 cm : No STOP-BANG Sleep Apnea Risk Level Score : 2 KEITH HORNE RN - 04/07/2019 14:34 EDT Hx of Obstructive Sleep Apnea Diagnosis : No Snore Loudly : No Tired, Fatigued, or Sleepy During Day : No Observed Stopping Breathing During Sleep : No Have/Are Being Treated for Hypertension : Yes Age over 50 Years Old : No Gender Male : No KEITH HORNE RN - 04/07/2019 14:02 EDT Efrain Scale Efarin Sensory Perception : No impairment Efrain Moisture : Rarely moist Efrain Activity : Walks frequently Efrain Mobility : No limitation Efrain Nutrition : Adequate Efrain Friction and Shear : No apparent problem Efrain Score : 22 KEITH HORNE RN - 04/07/2019 14:02 EDT Oxygen Therapy Oxygen Titrated : No KEITH HORNE RN - 04/07/2019 14:02 EDT Pain Assessment Pain Assessment : Initial assessment Pain Scale Goal : 0 Pain Scl Goal Comment : 0 Duration : 0 Pain Scale Used : 0-10 Scale KEITH HORNE RN - 04/07/2019 14:02 EDT Fall Risk Scales ABCs Fall Injury Risk Identification : Coagulation ABC Fall Injury Risk : Moderate to high injury risk DUFFY Hx Falls Immediate/Within 3 Months : No Duffy Secondary Diagnosis : No DUFFY Use of Ambulatory Aid : None DUFFY IV Therapy or IV Access : No Duffy Gait/Transferring : Normal, bedrest, immobile Duffy Mental Status : Oriented to own ability Duffy Fall Risk Score : 0 DUFFY Fall Scale Risk Level : 0-24 Low Risk Dix Fall Interventions : Wheels locked KEITH HORNE RN - 04/07/2019 14:02 EDT Education Topics, Day of Surgery DayofSurgery Education Grid IV's : Verbalizes understanding KEITH HORNE RN - 04/07/2019 14:02 EDT Valuables and Belongings Valuables and Belongings : Clothing Clothing : Common streetwear Clothing Disposition : Bedside, Other: pt denies valuables with her. KEITH HORNE RN - 04/07/2019 14:02 EDT Electronically signed by Carmen [facility] Conversion Yarder Operator Cerner at 12/16/2022 5:31 PM CDT documented in this encounter Plan of Treatment Not on file documented as of this encounter Visit Diagnoses Not on filedocumented in this encounter Care Teams Digital Strategy Director Relationship Specialty Start Date End Date Carlos Laguna MD [facility] [place] [address] PCP - General Family Medicine 02/07/23 documented as of this encounter
--- NOTE | 2025-03-22 20:50 | XR_ITS ---
PROCEDURE INFORMATION: Exam: XR Chest Exam date and time: 03/22/2025 9:14 PM Age: 49 years old Clinical indication: Pain; Chest pressure; Additional info: Chest pain TECHNIQUE: Imaging protocol: Radiologic exam of the chest. Views: 2 views. COMPARISON: No relevant prior studies available. FINDINGS: Lungs: Unremarkable. No consolidation. Pleural spaces: Unremarkable. No pleural effusion. No pneumothorax. Heart/Mediastinum: Unremarkable. No cardiomegaly. Bones/joints: Unremarkable. IMPRESSION: No acute findings.
[2025-03-22 20:56] LABS: Hematocrit 40.9 % (37.0-47.0); Hemoglobin 13.4 g/dL (12.2-16.2); Immature Granulocytes % 0.1 %; Mean Corpuscular HGB Conc 32.8 g/dL (31.8-35.4); Mean Corpuscular Hemoglobin 29.1 pg (27.0-31.2); Mean Corpuscular Volume 88.9 fl (81-99); Nucleated Red Blood Cells % 0 %; Platelet Count 273 K/mm3 (142-424); Red Blood Count 4.60 M/mm3 (4.20-5.40); Red Cell Distribution Width-SD 40.5 fL; White Blood Count 6.8 K/mm3 (4.8-10.8)
[2025-03-22 21:03] LABS: Alanine Aminotransferase 14 U/L (12-78); Albumin Level 4.4 g/dl (3.5-5.0); Albumin/Globulin Ratio 1.6 (1.1-1.8); Alkaline Phosphatase 118 U/L (38-126); Anion Gap 10.4 mEq/L (5-15); Aspartate Amino Transferase 23 U/L (14-36); Bilirubin,Total 0.6 mg/dl (0.2-1.3); Blood Urea Nitrogen 17 mg/dl (7-17); Calcium 9.7 mg/dl (8.4-10.2); Carbon Dioxide 25 mmol/L (22.0-30.0); Chloride 111 mmol/L (98-107); Creatinine Clearance Estimated 77 mL/min (50-200); Creatinine,Serum 0.90 mg/dl (0.52-1.04); Estimated Glomerular Filt Rate 67 ml/min (>60); GFR (African American) 81 ML/MIN (>60); Globulin 2.8 g/dL (1.3-3.2); Glucose 112 mg/dl (74-100); Potassium 3.4 mmoL/L (3.5-5.1); Sodium 143 mmol/L (136-145); Total Protein,Serum 7.2 g/dl (6.3-8.2)
[2025-03-22 21:08] LABS: D-Dimer 0.58 ug/mL (0.0-0.5)
[2025-03-22] MEDS: ONDANSETRON 4MG/2ML VIAL 4 MG IV (21:09)
[2025-03-22] MEDS: ACETAMINOPHEN 500MG TAB 1000 MG PO (21:10)
[2025-03-22] MEDS: KETOROLAC 30MG/ML VIAL 15 MG IV (21:10)
[2025-03-22] MEDS: 0.9 % SODIUM CHLORIDE 1000ML 1,000 ML 999 ML IV (21:10)
[2025-03-22 21:16] LABS: HCG Qualitative, Serum Negative (Negative); NT Pro Brain Natriuretic Pep. 45.4 pg/mL (0-125)
[2025-03-22 21:20] LABS: Troponin I < 0.01 ng/ml (0.00-0.034)
[2025-03-22] MEDS: POTASSIUM CHLORIDE 20MEQ TAB 60 MEQ PO (21:21)
[2025-03-22 22:00] VITALS: BP 133/83; PULSE 66; O2SAT 97
[2025-03-22 22:30] VITALS: BP 153/83; PULSE 62; O2SAT 98
[2025-03-22 23:01] VITALS: BP 124/83; PULSE 74; O2SAT 97
[2025-03-22 23:59] LABS: Troponin I < 0.01 ng/ml (0.00-0.034)
--- NOTE | 2025-03-23 00:10 | ECG_ITS ---
APPROVED REPORT Exam: Resting ECG HR:57 bpm ECG Measurements Heart Rate 57 AXES HI 176 P 24 QRSd 79 QRS 85 QT 426 T 77 QTc [address] DEVIATION AND MODERATE T-WAVE ABNORMALITY, CONSIDER ANTERIOR ISCHEMIA [-0.1+ mV T-WAVE IN V3/V4] ABNORMAL ECG UNCONFIRMED REPORT Electronically signed by : NISA PERERA, 03/25/2025 01:06:57
[2025-03-23 00:30] VITALS: BP 126/84; PULSE 61; RESP 18; TEMP 36.6; O2SAT 98
== END 2025-03-23 00:31 | disposition home or self-care (01) ==
PROVIDERS: Physician Assistant; Emergency Provider Emergency Medicine; PCP Family Medicine
DX: R07.9 Chest pain, unspecified (principal)
CPT/HCPCS: 71046; 80053; 83880; 84484; 84703; 85025; 85378; 93005; 96361; 96374; 96375; 99285; J1885; J2405; J7030